=== PATIENT | female | born 1995 | race Caucasian/White ===

== ENCOUNTER 2016-03-21 04:08 | Outpatient (CLI) | payer MEDICAID ==
[2016-03-21 04:33] LABS: APPEARANCE,URINE SLIGHTLY-CLOUDY; BILIRUBIN,URINE NEGATIVE (NEGATIVE); GLUCOSE, URINE NEGATIVE (NEGATIVE); KETONES,URINE NEGATIVE (NEGATIVE); LEUKOCYTE ESTERASE,URINE MODERATE (NEGATIVE); NITRITE,URINE NEGATIVE (NEGATIVE); PROTEIN,URINE 30 mg/dL (NEGATIVE); URINE SPECIFIC GRAVITY 1.023
[2016-03-21 04:47] LABS: URINE BARBITURATES SCREEN NEGATIVE; URINE METHADONE SCREEN NEGATIVE; URINE OPIATES LOW NEGATIVE; URINE PHENCYCLIDINE SCREEN NEGATIVE
[2016-03-21] MEDS ORDERED: FLUCONAZOLE 100 MG TABLET PO ONE (05:13)
[2016-03-21] MEDS ORDERED: FLUCONAZOLE 100 MG TABLET ONE (05:15)
--- NOTE | 2016-03-21 06:21 | Non Stress Test Report ---
Non Stress Test Datetime Report Generated by CPN: 03/21/2016 06:20 DEMOGRAPHIC EGA NST: 36.3 INDICATION Indication for Study: Ordered by Provider Indication for Study (NST) Other: labor check URINE RESULTS Urine Protein, NST: Positive Urine Ketones - NST: Negative Urine Glucose - NST: Negative Urine Blood - NST: Negative MONITORING Monitor Explained: Monitor Explained; Test Explained; Patient Verbalized Understanding Time on Monitor: 03/21/2016 04:19 Time off Monitor: 03/21/2016 06:08 NST Duration: 109 NST INTERVENTIONS NST Interventions: PO Hydration Physician Notified NST: Dr. Neilsen BABY A: [id number] BABY A Movement : Present Contraction Frequency : irregular FHR Baseline : 135 Accelerations : 15X15 Variability : Moderate 6-25bpm NST Review: Meets Criteria for Reactive NST NST Review and Verified By : B. Ring RN NST Results: Reactive NST REPORT Report Trigger: Send Report
[2016-03-21 06:45] LABS: CHLAM PCR NOT DETECTED (NOT DETECT)
== END 2016-03-21 06:14 | disposition home or self-care (01) ==
LOC: LC 04:08
PROVIDERS: ATTEND Specialist
PROC: 4A1HXCZ Monitoring of Products of Conception, Cardiac Rate, External Approach (ICD-10-PCS; principal; 2016-03-21)
DX: O47.03 False labor before 37 completed weeks of gestation, third trimester (principal); Z3A.36 36 weeks gestation of pregnancy
CPT/HCPCS: 59025; 87077; 81001; 87081; 80307; 87491; 87591; J3490

== ENCOUNTER 2016-03-21 08:19 | Inpatient (IN) | payer MEDICAID ==
[2016-03-21] MEDS ORDERED: PENICILLIN G POTASSIUM 5,000,000 UNIT in DEXTROSE 5%-WATER 100 ML IV ONE (08:46)
[2016-03-21] MEDS ORDERED: PENICILLIN G-K 5 MILLION UNIT VIAL ONE (08:52)
[2016-03-21] MEDS ORDERED: MISOPROSTOL 0.2 MG TABLET ONE (08:57)
[2016-03-21] MEDS ORDERED: LIDOCAINE 1% INJ-PF (10 MG/ML) 30 ML SDV ONE (08:57)
[2016-03-21] MEDS ORDERED: OXYTOCIN/NORMAL SALINE 20 UNIT/1,000 ML RTUINJ ONE (08:57)
[2016-03-21] MEDS ORDERED: FENTANYL/BUPIVACAINE/NS/PF 100 ML EPI PRN (09:19)
[2016-03-21] MEDS ORDERED: BUPIVACAINE HCL 0.25 % INJ/PF (2.5 MG/1 ML) 30 ML VIAL INFIL ONE (09:19)
[2016-03-21] MEDS ORDERED: BENZOIN/ALOE VERA/STORAX/TOLU TINCTURE 60 ML TP PRN (09:19)
[2016-03-21] MEDS ORDERED: EPHEDRINE SULFATE INJ 50 MG/1 ML AMPULE IV PRN (09:19)
[2016-03-21 09:23] LABS: ABSOLUTE EOSINOPHILS # (AUTO) 0.1 10^3/uL (0.0-0.6); ABSOLUTE LYMPHOCYTES (AUTO) 2.5 10^3/uL (0.5-4.7); ABSOLUTE MONOCYTES (AUTO) 0.5 10^3/uL (0.1-1.4); ABSOLUTE NEUT (AUTO) 7.2 10^3/uL (1.7-8.2); BASOPHILS % (AUTO) 0.3 % (0-2); EOSINOPHILS % (AUTO) 0.6 % (0-6); HEMATOCRIT 29.9 % (36.0-47.0); HEMOGLOBIN 9.4 g/dL (12.0-15.5); HGB HCT DIFFERENCE -1.7; LYMPHOCYTES % (AUTO) 24.2 % (13-45); MEAN CORPUSCULAR HEMOGLOBIN 23.9 pg (27.0-33.4); MEAN CORPUSCULAR HGB CONC 31.3 g/dL (32.0-36.0); MEAN CORPUSCULAR VOLUME 77 fl (80-97); MONOCYTES % (AUTO) 4.9 % (3-13); RED BLOOD COUNT 3.91 10^6/uL (3.72-5.28); RED CELL DISTRIBUTION WIDTH 16.6 % (11.5-14.0); WHITE BLOOD COUNT 10.3 10^3/uL (4.0-10.5)
[2016-03-21] MEDS ORDERED: EPHEDRINE SULFATE INJ 50 MG/1 ML AMPULE ONE (09:23)
[2016-03-21] MEDS ORDERED: FENTANYL/BUPIVACAINE/NS/PF 200 MCG/100 ML RTUINJ EPI ONE (09:24)
[2016-03-21] MEDS ORDERED: BUPIVACAINE HCL 0.25 % INJ/PF (2.5 MG/1 ML) 30 ML VIAL ONE (09:24)
[2016-03-21 09:32] LABS: AMNISURE (ROM) POSITIVE (NEGATIVE)
[2016-03-21] MEDS: RINGERS SOLUTION,LACTATED 1,000 ML IV PRN ×2 (09:35→09:45)
--- NOTE | 2016-03-21 10:00 | L&D Flow Sheet ---
LD Flowsheet Datetime Report Generated by CPN: 03/21/2016 10:00 Datetime: 03/21/2016 09:59 Vital Signs NBP Sys/Johanna/Mean (mmHg): 122 (QS system process) : 71 (QS system process) : 92 (QS system process) Pulse: 89 (QS system process) LaborFlag: OB Triage (QS system process) Datetime: 03/21/2016 09:58 Vital Signs NBP Sys/Johanna/Mean (mmHg): 131 (QS system process) : 74 (QS system process) : 95 (QS system process) Pulse: 96 (QS system process) Epidural Procedure: Cath Placed; Test Dose (Irasema Marciano, RN) LaborFlag: OB Triage (QS system process) Datetime: 03/21/2016 09:57 Epidural Procedure: Loading Dose (Irasemaalisson Tariq, RN) Datetime: 03/21/2016 09:50 Procedure TIME OUT Procedure Type: Epidural (Irasema Tariq, JUVENCIO) Procedure Verify: Correct Patient Identity; Correct Side and Site are Marked; Accurate Procedure Consent Form; Agreement on Procedure to be Done; Correct Patient Position; Relevant Images and Results are Properly Labeled and Displayed; Addressed Need to Administer Antibiotics or Fluids for Irrigation; Safety Precautions Based on Patient History or Medication Use (Irasema Tariq, JUVENCIO) Anesthesia Anesthesia Plans: Epidural (Irasema Tariq, RN) Epidural Positioning: Sitting (Irasema Tariq, RN) Anesthesia Comments: Dr Kaur at bedside (Irasema Tariq RN) Datetime: 03/21/2016 09:45 Patient Care IV/Blood Work: New IV Bag Hung; IV Bag Number @ 2 (Irasema Marciano, RN) Datetime: 03/21/2016 09:39 Anesthesia Anesthesia Plans: Epidural (Irasemaalisson Tariq, RN) Epidural Positioning: Sitting (Irasema Valenciaie, RN) Datetime: 03/21/2016 09:30 Uterine Activity Monitor Mode: External; Palpation (Irasema Tariq, RN) Frequency (min): 2-3 (Irasema Tariq, RN) Quality: Moderate to Strong (Irasemaalisson Tariq, RN) Duration (sec): 60-80 (Irasema Tariq, RN) Resting Tone (Palpate): Relaxed (Irasema Tariq, RN) Assessment A Monitor Mode: External US (Irasema Marciano, RN) FHR Baseline Rate : 140 (Irasema Marciano, RN) Variability: Moderate 6-25 bpm (Irasema Marciano, RN) Accelerations: 15X15 (Irasema Marciano, RN) Decelerations: None (Irasema Marciano, RN) Procedure TIME OUT Procedure Type: Epidural (Irasema Marciano, RN) Procedure Verify: Correct Patient Identity; Correct Side and Site are Marked; Accurate Procedure Consent Form; Agreement on Procedure to be Done; Relevant Images and Results are Properly Labeled and Displayed; Addressed Need to Administer Antibiotics or Fluids for Irrigation; Safety Precautions Based on Patient History or Medication Use (Irasema Marciano, RN) Anesthesia Anesthesia Plans: Epidural (Irasema Tariq, RN) Epidural Positioning: Sitting (Irasema Tariq, RN) Anesthesia Comments: Dr Chekan notified of epidural request (Irasemaalisson Tariq, RN) Datetime: 03/21/2016 09:28 Vital Signs NBP Sys/Johanna/Mean (mmHg): 131 (QS system process) : 70 (QS system process) : 92 (QS system process) Pulse: 109 (QS system process) Respirations: 18 (Irasemaalisson Tariq, RN) LaborFlag: OB Triage (QS system process) Datetime: 03/21/2016 09:02 Frequency (min): 3-5 (Irasema Tariq RN) Pain Pain Scale: 5 (Irasema Tariq RN) Pain Presence: Intermittent (Irasema Tariq RN) Pain Type: Contraction (Irasema Tariq RN) Pain Location: Abdomen (Irasema Tariq RN) Pain Goal: 2 (Irasema Tariq RN) Pain Relief Measures: Comfort Measures (Irasema Tariq RN) Pain Coping: Breathing Through Contractions; Requesting Pain Medication or Epidural (Irasema Tariq RN) Membrane Status: Ruptured (Irasema Tariq RN) Membranes Ruptured Date/Time: 03/21/2016 07:30 (Irasema Tariq RN) Membranes Rupture Method: Spontaneous (Irasema Tariq RN) Amniotic Fluid Color: Clear (Irasema Tariq RN) Amniotic Fluid Amount: Moderate (Irasema Tariq RN) Amniotic Fluid Odor: Normal (Irasema Tariq RN) Vaginal Bleeding: None (Irasema Tariq RN) Kelly's Score Dilatation (cm): 5 or greater cms (Irasema Tariq RN) Effacement: >80_ effaced (Irasema Tariq RN) Station: plus 1 to 2 (Irasema Tariq RN) Consistency: Soft (Irasema Tariq, RN) Position: Anterior (Irasema Tariq, RN) Total Kelly's Score: 13 (QS system process) : 9-14 = Usually no failure for induction (QS system process) Maternal Assessment Level of Consciousness: Fully Conscious (Irasema Tariq, RN) DTR's/Clonus: DTRs 1+; No Clonus (Irasema Tariq, RN) Headache: Denies (Irasema Tariq, RN) Breath Sounds, Left: Clear and Equal (Irasema Tariq, RN) Breath Sounds, Right: Clear and Equal (Irasema Tariq, RN) Nausea/Vomiting: Denies (Irasema Tariq, RN) RUQ Epigastric Pain: Denies (Irasema Tariq, RN) Teaching Instructional Method: Verbal; Patient Instructed; Family/Support Person Instructed; Verbalized Understanding (Irasema Tariq RN) Plan of Care: Plan of Care Discussed; Vaginal Delivery; Labor (Irasema Tariq RN) Unit Routine: [place] to Room; Call Guerra; Bed; Visiting Policy; Waiting Areas; Infant Security; Phone/Cell Phone Use; Photography; Unit Personnel; Consents Signed; Handwashing; Monitoring; IV Pumps; Safety/Fall Risk Prevention; Bathroom Privileges; Medications (Irasema Tariq RN) Labor/Induction: Labor Stages; Antibiotic Use (Irasema Tariq RN) Pain Management: Epidural; Pain Scale/Goals; Comfort Measures (Irasema Tariq RN) Medications: Antibiotics (Irasema Tariq RN) LaborFlag: OB Triage (QS system process) Datetime: 03/21/2016 09:00 Uterine Activity Monitor Mode: External; Palpation (Irasema Tariq RN) Frequency (min): 2-3 (Irasema Tariq RN) Quality: Moderate to Strong (Irasema Tariq RN) Duration (sec): 60-80 (Irasema Tariq RN) Resting Tone (Palpate): Relaxed (Irasema Tariq RN) Assessment A Monitor Mode: External US (Irasema Tariq, RN) FHR Baseline Rate : 135 (Irasema Valenciaie, RN) Variability: Moderate 6-25 bpm (Irasema Marciano, RN) Accelerations: 15X15 (Irasema Marciano, RN) Decelerations: None (Irasema Valenciaie, RN) Datetime: 03/21/2016 08:57 Medications Antibiotics: Penicillin IV (Units) @ 5million units (Irasema Marciano, RN) Procedure TIME OUT Procedure Type: Epidural (Irasema Marciano, RN) Procedure Verify: Correct Patient Identity; Correct Side and Site are Marked; Accurate Procedure Consent Form; Agreement on Procedure to be Done; Relevant Images and Results are Properly Labeled and Displayed; Addressed Need to Administer Antibiotics or Fluids for Irrigation; Safety Precautions Based on Patient History or Medication Use (Irasema Tariq, RN) Anesthesia Anesthesia Plans: Epidural (Irasema Marciano, RN) Datetime: 03/21/2016 08:54 Patient Care IV/Blood Work: IV Started; IV Bolus Started; IV Bag Number @ 1 (Irasema Tariq RN) Datetime: 03/21/2016 08:53 Vital Signs NBP Sys/Johanna/Mean (mmHg): 119 (QS system process) : 76 (QS system process) : 91 (QS system process) Pulse: 88 (QS system process) Respirations: 18 (Irasema Tariq RN) Temperature (F): 98.2 (Irasema Tariq RN) Temperature (C): 36.8 (QS system process) Temperature Route: Oral (Irasema Tariq RN) LaborFlag: OB Triage (QS system process) Datetime: 03/21/2016 08:41 Vaginal Exam Dilatation (cm): 7.0 (Irasema Tariq RN) Effacement (%): 90 (Irasema Tariq RN) Station: 1 (Irasema Tariq RN) Exam by: Helena Tariq RNC (Irasema Tariq RN) Vaginal Bleeding: None (Irasema Tariq RN) Cervix, Consistency: Soft (Irasema Tariq RN) Cervix, Position: Anterior (Irasema Tariq RN) Datetime: 03/21/2016 06:14 Communication Additional Nursing Comments: pt left ambulatory from unit (Elma Chalman, RN) Datetime: 03/21/2016 06:08 Patient Care Comments: pt states that she is feeling much better and that contractions have gotten better. Pt educated on POC as directed by Dr. Luz. Pt instructed to f/u with doctor as regular scheduled appt. Pt vebalized understanding and agreed to POC (Elma Chalman, RN) Datetime: 03/21/2016 06:04 Vital Signs NBP Sys/Johanna/Mean (mmHg): 129 (QS system process) : 75 (QS system process) : 97 (QS system process) Pulse: 77 (QS system process) LaborFlag: OB Triage (QS system process) Datetime: 03/21/2016 06:00 Uterine Activity Monitor Mode: External; Palpation (Elma Loaiza RN) Frequency (min): irregular (Elma Loaiza RN) Quality: Mild (Elma Loaiza RN) Duration (sec): 60-80 (Emla Chalman, RN) Pattern: Normal: <= 5 Contractions in 10 Minutes (Elma Timaman, RN) Resting Tone (Palpate): Relaxed (Elma Chalman, RN) Contraction Comments: uterine irritability (Elma Chalman, RN) Assessment A Monitor Mode: External US (Elma Chalman, RN) FHR Baseline Rate : 135 (Elma Timaman, RN) Variability: Moderate 6-25 bpm (Elma Timaman, RN) Accelerations: 15X15 (Elma Timaman, RN) Decelerations: None (Elma Timaman, RN) Datetime: 03/21/2016 05:55 Vital Signs NBP Sys/Johanna/Mean (mmHg): 121 (QS system process) : 68 (QS system process) : 88 (QS system process) Pulse: 80 (QS system process) LaborFlag: OB Triage (QS system process) Datetime: 03/21/2016 05:45 Vital Signs NBP Sys/Johanna/Mean (mmHg): 121 (QS system process) : 72 (QS system process) : 91 (QS system process) Pulse: 83 (QS system process) LaborFlag: OB Triage (QS system process) Datetime: 03/21/2016 05:35 Vital Signs NBP Sys/Johanna/Mean (mmHg): 121 (QS system process) : 76 (QS system process) : 92 (QS system process) Pulse: 102 (QS system process) LaborFlag: OB Triage (QS system process) Datetime: 03/21/2016 05:30 Uterine Activity Monitor Mode: External; Palpation (Elma Chalman, RN) Frequency (min): 6-9 (Elma Chalman, RN) Quality: Mild (Elma Chalman, RN) Duration (sec): 40-70 (Elma Chalman, RN) Pattern: Normal: <= 5 Contractions in 10 Minutes (Elma Chalman, RN) Resting Tone (Palpate): Relaxed (Elma Chalman, RN) Assessment A Monitor Mode: External US (Elma Chalman, RN) FHR Baseline Rate : 130 (Elma Chalman, RN) Variability: Moderate 6-25 bpm (Elma Chalman, RN) Accelerations: 15X15 (Elma Chalman, RN) Decelerations: None (Elma Chalman, RN) Datetime: 03/21/2016 05:24 Vital Signs NBP Sys/Johanna/Mean (mmHg): 122 (QS system process) : 65 (QS system process) : 85 (QS system process) Pulse: 81 (QS system process) LaborFlag: OB Triage (QS system process) Datetime: 03/21/2016 05:17 Vital Signs NBP Sys/Johanna/Mean (mmHg): 125 (QS system process) : 60 (QS system process) : 86 (QS system process) Pulse: 96 (QS system process) LaborFlag: OB Triage (QS system process) Datetime: 03/21/2016 05:16 Medication Comments: Diflucan 150 mg po (Elma Chalman, RN) Datetime: 03/21/2016 05:12 Patient Care Comments: Dr. Luz called with pt report of possible yeast infection and d/c noted on exam. Per provider pt to have Diflucan 150mg POx1 dose now (Elma Timaman, RN) Datetime: 03/21/2016 05:08 I/O Interventions: Up to BR (Elma Chalman, RN) Datetime: 03/21/2016 05:06 Patient Care Comments: pt states that she was dx with yeast infection 2 weeks ago but s/sx never improved. (Elma Loaiza RN) Datetime: 03/21/2016 05:04 Vital Signs NBP Sys/Johanna/Mean (mmHg): 123 (QS system process) : 63 (QS system process) : 86 (QS system process) Pulse: 91 (QS system process) Vaginal Exam Comments: closed/thick/-1 (Elma Loaiza RN) LaborFlag: OB Triage (QS system process) Datetime: 03/21/2016 05:01 Patient Care Comments: white curdy d/c noted on SSE (Elma Loaiza RN) Patient Care Comments: GBS cx and gc/chalm via SSE done (Elma Loaiza RN) Datetime: 03/21/2016 05:00 Uterine Activity Monitor Mode: External; Palpation (Elma Loaiza RN) Frequency (min): 6-9 (Elma Loaiza RN) Quality: Mild (Elma Chalman, RN) Duration (sec): 60-90 (Elma Chalman, RN) Pattern: Normal: <= 5 Contractions in 10 Minutes (Elma Chalman, RN) Resting Tone (Palpate): Relaxed (Elma Chalman, RN) Assessment A Monitor Mode: External US (Elma Chalman, RN) FHR Baseline Rate : 140 (Elma Chalman, RN) FHR Baseline Changes: No Baseline Change (Elma Chalman, RN) Variability: Moderate 6-25 bpm (Elma Chalman, RN) Accelerations: 10X10 (Elma Chalman, RN) Decelerations: None (Elma Chalman, RN) Datetime: 03/21/2016 04:54 Vital Signs NBP Sys/Johanna/Mean (mmHg): 124 (QS system process) : 71 (QS system process) : 91 (QS system process) Pulse: 80 (QS system process) LaborFlag: OB Triage (QS system process) Datetime: 03/21/2016 04:51 Communication Additional Nursing Comments: Report called to Dr. Luz. provider aware that pt is not our pt presenting for contractions. Provider given u/a, toco and FHR tracing along with pt complaint and history. Per provider pt to have GBS cx, GC/Chlam swab and SVE. Pt to be monitored x1 hour while PO hydrating to see if contractions improve. (Elma Loaiza RN) Datetime: 03/21/2016 04:45 Uterine Activity Monitor Mode: External; Palpation (Elma Chalman, RN) Frequency (min): 7-8 (Elma Chalman, RN) Quality: Mild (Elma Chalman, RN) Duration (sec): 40-60 (Elma Chalman, RN) Pattern: Normal: <= 5 Contractions in 10 Minutes (Elma Chalman, RN) Resting Tone (Palpate): Relaxed (Elma Chalman, RN) Assessment A Monitor Mode: External US (Elma Chalman, RN) FHR Baseline Rate : 145 (Elma Chalman, RN) FHR Baseline Changes: No Baseline Change (Elma Chalman, RN) Variability: Moderate 6-25 bpm (Elma Chalman, RN) Accelerations: 10X10 (Elma Chalman, RN) Decelerations: None (Elma Chalman, RN) Datetime: 03/21/2016 04:44 Vital Signs NBP Sys/Johanna/Mean (mmHg): 123 (QS system process) : 71 (QS system process) : 90 (QS system process) Pulse: 82 (QS system process) LaborFlag: OB Triage (QS system process) Datetime: 03/21/2016 04:27 Vital Signs NBP Sys/Johanna/Mean (mmHg): 132 (QS system process) : 78 (QS system process) : 98 (QS system process) Pulse: 87 (QS system process) Frequency (min): 7-8 (Elma Loaiza RN) Pain Pain Scale: 3 (Elma Loaiza RN) Pain Presence: Intermittent (Elma Loaiza RN) Pain Type: Contraction (Elma Loaiza RN) Pain Location: Abdomen; Back (Elma Loaiza RN) Pain Relief Measures: Comfort Measures (Elma Loaiza RN) Pain Coping: Talking Through Contractions (Elma Loaiza RN) Membrane Status: Intact (Elma Loaiza RN) Vaginal Bleeding: None (Elma Loaiza RN) Maternal Assessment Level of Consciousness: Fully Conscious (Elma Loaiza RN) DTR's/Clonus: DTRs 1+ (Elma Loaiza RN) Headache: Denies (Elma Loaiza RN) Breath Sounds, Left: Clear and Equal (Elma Loaiza RN) Breath Sounds, Right: Clear and Equal (Elma Loaiza RN) Nausea/Vomiting: Denies (Elma Loaiza RN) RUQ Epigastric Pain: Denies (Elma Loaiza RN) LaborFlag: OB Triage (QS system process)
[2016-03-21] MEDS ORDERED: MISOPROSTOL 0.2 MG TABLET PR PRN (10:36)
[2016-03-21] MEDS ORDERED: OXYTOCIN/NORMAL SALINE 1,000 ML IV PRN (10:36)
[2016-03-21] MEDS ORDERED: LIDOCAINE 1% INJ-PF (10 MG/ML) 30 ML SDV INJ PRN (10:38)
--- NOTE | 2016-03-21 12:00 | L&D Flow Sheet ---
LD Flowsheet Datetime Report Generated by CPN: 03/21/2016 12:00 Datetime: 03/21/2016 11:47 Communication Comments: Dr Varner notified of SVE (Irasema Tariq, RN) Datetime: 03/21/2016 11:45 Monitor Mode: External; Palpation (Irasema Tariq RN) Frequency (min): 2-3 (Irasema Tariq RN) Quality: Moderate (Irasema Tariq RN) Duration (sec): 50-70 (Irasema Tariq RN) Resting Tone (Palpate): Relaxed (Irasema Tariq RN) Monitor Mode: External US (Irasema Tariq RN) FHR Baseline Rate : 145 (Irasema Tariq RN) Variability: Moderate 6-25 bpm (Irasema Tariq RN) Decelerations: None (Irasema Tariq RN) Datetime: 03/21/2016 11:44 Patient Position/Activity: Left Lateral; Peanut Ball (Irasema Tariq RN) Datetime: 03/21/2016 11:41 Dilatation (cm): 9.0 (Irasema Tariq RN) Effacement (%): 90 (Irasema Tariq RN) Station: 1 (Irasema Tariq RN) Exam by: Helena Tariq RNC (Irasema Tariq RN) Vaginal Bleeding: Normal Show (Irasema Tariq RN) Cervix, Consistency: Soft (Irasema Tariq RN) Cervix, Position: Anterior (Irasema Tariq RN) Pushing: Urge to Push (Irasema Tariq RN) Stage 2 Comments: Patient reports pressure (Irasema Marciano, RN) Datetime: 03/21/2016 11:30 Monitor Mode: External; Palpation (Irasema Marciano, RN) Frequency (min): 2-3 (Irasema Marciano, RN) Quality: Moderate (Irasema Marciano, RN) Duration (sec): 50-70 (Irasema Marciano, RN) Resting Tone (Palpate): Relaxed (Irasema Marciano, RN) Monitor Mode: External US (Irasema Marciano, RN) FHR Baseline Rate : 145 (Irasema Marciano, RN) Variability: Moderate 6-25 bpm (Irasema Marciano, RN) Decelerations: None (Irasema Marciano, RN) Datetime: 03/21/2016 11:15 Monitor Mode: External; Palpation (Irasema Marciano, RN) Frequency (min): 2 (Irasema Marciano, RN) Quality: Moderate (Irasema Marciano, RN) Duration (sec): 50-70 (Irasema Marciano, RN) Resting Tone (Palpate): Relaxed (Irasema Marciano, RN) Monitor Mode: External US (Irasema Marciano, RN) FHR Baseline Rate : 135 (Irasema Marciano, RN) Variability: Moderate 6-25 bpm (Irasema Marciano, RN) Accelerations: 15X15 (Irasema Marciano, RN) Decelerations: None (Irasema Marciano, RN) Datetime: 03/21/2016 11:11 Patient Position/Activity: Right Lateral (Irasema Marciano, RN) Datetime: 03/21/2016 11:03 Patient Position/Activity: Right Tilt (Irasema Marciano, RN) Datetime: 03/21/2016 11:00 NBP Sys/Johanna/Mean (mmHg): 125 (QS system process) : 63 (QS system process) : 88 (QS system process) Pulse: 84 (QS system process) Respirations: 16 (Irasema Tariq RN) Temperature (F): 98.2 (Irasema Tariq RN) Temperature (C): 36.8 (QS system process) Temperature Route: Oral (Irasema Tariq RN) Monitor Mode: External; Palpation (Irasema Tariq RN) Frequency (min): 2-3 (Irasema Tariq RN) Quality: Moderate (Irasema Tariq RN) Duration (sec): 50-70 (Irasema Tariq RN) Resting Tone (Palpate): Relaxed (Irasema Tariq RN) Monitor Mode: External US (Irasema Tariq RN) FHR Baseline Rate : 130 (Irasema Tariq RN) Variability: Minimal - Undetectable to <=5 bpm (Irasema Tariq RN) Decelerations: Variable (Irasema Tariq RN) LaborFlag: OB Triage (QS system process) Datetime: 03/21/2016 10:57 NBP Sys/Johanna/Mean (mmHg): 126 (QS system process) : 76 (QS system process) : 95 (QS system process) Pulse: 86 (QS system process) LaborFlag: OB Triage (QS system process) Datetime: 03/21/2016 10:54 NBP Sys/Johanna/Mean (mmHg): 131 (QS system process) : 66 (QS system process) : 91 (QS system process) Pulse: 88 (QS system process) LaborFlag: OB Triage (QS system process) Datetime: 03/21/2016 10:48 NBP Sys/Johanna/Mean (mmHg): 126 (QS system process) : 59 (QS system process) : 85 (QS system process) Pulse: 92 (QS system process) LaborFlag: OB Triage (QS system process) Datetime: 03/21/2016 10:45 NBP Sys/Johanna/Mean (mmHg): 134 (QS system process) : 72 (QS system process) : 92 (QS system process) Pulse: 90 (QS system process) Respirations: 18 (Irasema Marciano, RN) Monitor Mode: External; Palpation (Irasema Tariq, RN) Frequency (min): 2-3 (Irasema Tariq, RN) Quality: Moderate (Irasema Tariq, RN) Duration (sec): 60-80 (Irasema Tariq RN) Resting Tone (Palpate): Relaxed (Irasema Tariq, RN) Monitor Mode: External US (Irasema Tariq RN) FHR Baseline Rate : 135 (Irasema Tariq, RN) Variability: Moderate 6-25 bpm (Irasemaalisson Tariq, RN) Accelerations: 10X10 (Irasemaalisson Tariq, RN) Decelerations: Early; Variable (Irasema Tariq, RN) LaborFlag: OB Triage (QS system process) Datetime: 03/21/2016 10:38 NBP Sys/Johanna/Mean (mmHg): 138 (QS system process) : 66 (QS system process) : 92 (QS system process) Pulse: 86 (QS system process) Respirations: 16 (Irasema Tariq RN) LaborFlag: OB Triage (QS system process) Datetime: 03/21/2016 10:34 NBP Sys/Johanna/Mean (mmHg): 129 (QS system process) : 65 (QS system process) : 91 (QS system process) Pulse: 96 (QS system process) Respirations: 16 (Irasema Tariq RN) LaborFlag: OB Triage (QS system process) Datetime: 03/21/2016 10:30 Monitor Mode: External; Palpation (Irasema Tariq RN) Frequency (min): 2-3 (Irasema Tariq RN) Quality: Moderate (Irasema Tariq RN) Duration (sec): 50-80 (Irasema Tariq RN) Resting Tone (Palpate): Relaxed (Irasema Tariq RN) Monitor Mode: External US (Irasema Tariq RN) FHR Baseline Rate : 135 (Irasema Tariq RN) Variability: Moderate 6-25 bpm (Irasemaalisson Tariq, RN) Accelerations: 15X15 (Irasemaalisson Tariq, RN) Decelerations: Variable (Irasema Tariq RN) Datetime: 03/21/2016 10:28 NBP Sys/Johanna/Mean (mmHg): 125 (QS system process) : 74 (QS system process) : 95 (QS system process) Pulse: 94 (QS system process) LaborFlag: OB Triage (QS system process) Datetime: 03/21/2016 10:23 NBP Sys/Johanna/Mean (mmHg): 127 (QS system process) : 61 (QS system process) : 88 (QS system process) Pulse: 91 (QS system process) Respirations: 16 (Irasema Tariq RN) LaborFlag: OB Triage (QS system process) Datetime: 03/21/2016 10:18 Pain Scale: 0 (Irasema Tariq RN) Pain Presence: None/Denies (Irasema Tariq RN) Pain Type: N/A (Irasema Tariq RN) Pain Goal: 2 (Irasema Tariq RN) I/O Interventions: Paulson Cath Inserted (Irasema Tariq RN) LaborFlag: OB Triage (QS system process) Datetime: 03/21/2016 10:15 Monitor Mode: External; Palpation (Irasema Marciano, RN) Frequency (min): 2-3 (Irasema Marciano, RN) Quality: Moderate (Irasema Marciano, RN) Duration (sec): 60-80 (Irasema Marciano, RN) Resting Tone (Palpate): Relaxed (Irasema Marciano, RN) Monitor Mode: External US (Irasema Marciano, RN) FHR Baseline Rate : 130 (Irasema Marciano, RN) Variability: Moderate 6-25 bpm (Irasema Marciano, RN) Accelerations: 10X10 (Irasema Marciano, RN) Decelerations: Early (Irasema Marciano, RN) Datetime: 03/21/2016 10:12 NBP Sys/Johanna/Mean (mmHg): 115 (QS system process) : 65 (QS system process) : 83 (QS system process) Pulse: 107 (QS system process) Respirations: 18 (Irasema Marciano, RN) LaborFlag: OB Triage (QS system process) Datetime: 03/21/2016 10:11 Dilatation (cm): 8.0 (Irasema Tariq RN) Effacement (%): 90 (Irasema Tariq RN) Station: 1 (Irasema Tariq RN) Exam by: Helena Tariq RNC (Irasema Tariq RN) Vaginal Bleeding: None (Irasema Tariq RN) Cervix, Consistency: Soft (Irasema Tariq RN) Cervix, Position: Anterior (Irasema Tariq RN) Datetime: 03/21/2016 10:09 NBP Sys/Johanna/Mean (mmHg): 129 (QS system process) : 68 (QS system process) : 86 (QS system process) Pulse: 90 (QS system process) Respirations: 18 (Irasema Tariq RN) LaborFlag: OB Triage (QS system process) Datetime: 03/21/2016 10:08 NBP Sys/Johanna/Mean (mmHg): 118 (QS system process) : 59 (QS system process) : 84 (QS system process) Pulse: 92 (QS system process) LaborFlag: OB Triage (QS system process) Datetime: 03/21/2016 10:07 NBP Sys/Johanna/Mean (mmHg): 152 (QS system process) : 58 (QS system process) : 83 (QS system process) Pulse: 96 (QS system process) Respirations: 16 (Irasema Tariq RN) LaborFlag: OB Triage (QS system process) Datetime: 03/21/2016 10:04 NBP Sys/Johanna/Mean (mmHg): 116 (QS system process) : 62 (QS system process) : 82 (QS system process) Pulse: 86 (QS system process) Respirations: 18 (Irasema Tariq RN) LaborFlag: OB Triage (QS system process) Datetime: 03/21/2016 10:03 NBP Sys/Johanna/Mean (mmHg): 115 (QS system process) : 57 (QS system process) : 81 (QS system process) Pulse: 94 (QS system process) Respirations: 18 (Irasema Tariq RN) LaborFlag: OB Triage (QS system process) Datetime: 03/21/2016 10:02 NBP Sys/Johanna/Mean (mmHg): 118 (QS system process) : 60 (QS system process) : 82 (QS system process) Pulse: 90 (QS system process) Respirations: 20 (Irasema Tariq RN) Patient Position/Activity: Left Tilt; Supine (Irasema Tariq RN) LaborFlag: OB Triage (QS system process) Datetime: 03/21/2016 10:00 Monitor Mode: External; Palpation (Irasema Tariq RN) Frequency (min): 2-3 (Irasema Tariq RN) Quality: Moderate to Strong (Irasema Tariq RN) Duration (sec): 50-80 (Irasema Tariq RN) Resting Tone (Palpate): Relaxed (Irasema Tariq RN) Monitor Mode: External US (Irasema Tariq RN) FHR Baseline Rate : 135 (Irasema Tariq RN) Variability: Moderate 6-25 bpm (Irasema Tariq RN) Accelerations: 15X15 (Irasema Tariq RN) Decelerations: None (Irasema Tariq RN)
[2016-03-21] MEDS ORDERED: PENICILLIN G POTASSIUM 2,500,000 UNIT in DEXTROSE 5%-WATER 50 ML IV SCH (12:49)
[2016-03-21] MEDS ORDERED: DIBUCAINE 1% OINTMENT 28 GM TP PRN (13:02)
[2016-03-21] MEDS ORDERED: ACETAMINOPHEN WITH CODEINE #3 TABLET PO PRN ×2 (13:02)
[2016-03-21] MEDS ORDERED: DIPH/PERTUSS(ACELL)/TETANUS VAC/PF 0.5 ML SYR (>=10YO) IM PRN (13:02)
[2016-03-21] MEDS ORDERED: BENZOCAINE/MENTHOL AEROSOL SPRAY 56 ML TOP PRN (13:02)
[2016-03-21] MEDS ORDERED: ZOLPIDEM TARTRATE 5 MG TABLET PO PRN (13:02)
[2016-03-21] MEDS ORDERED: MEASLES,MUMPS&RUBELLA VACC/PF 0.5 ML VIAL SUBCUT PRN (13:02)
[2016-03-21] MEDS ORDERED: IBUPROFEN 800 MG TABLET ONE (13:44)
[2016-03-21] MEDS: IBUPROFEN 800 MG TABLET PO SCH ×2 (13:46→21:33)
--- NOTE | 2016-03-21 14:01 | L&D Flow Sheet ---
LD Flowsheet Datetime Report Generated by CPN: 03/21/2016 14:00 Datetime: 03/21/2016 13:30 NBP Sys/Johanna/Mean (mmHg): 108 (QS system process) : 56 (QS system process) : 76 (QS system process) Pulse: 77 (QS system process) Datetime: 03/21/2016 13:15 NBP Sys/Johanna/Mean (mmHg): 109 (QS system process) : 60 (QS system process) : 78 (QS system process) Pulse: 89 (QS system process) Datetime: 03/21/2016 13:00 NBP Sys/Johanna/Mean (mmHg): 102 (QS system process) : 69 (QS system process) : 82 (QS system process) Pulse: 90 (QS system process) Respirations: 14 (Irasema Marciano, RN) Datetime: 03/21/2016 12:45 NBP Sys/Johanna/Mean (mmHg): 90 (QS system process) : 59 (QS system process) : 67 (QS system process) Pulse: 109 (QS system process) Respirations: 14 (Irasema Marciano, RN) Datetime: 03/21/2016 12:30 NBP Sys/Johanna/Mean (mmHg): 113 (QS system process) : 60 (QS system process) : 79 (QS system process) Pulse: 103 (QS system process) Respirations: 16 (Irasema Tariq RN) Datetime: 03/21/2016 12:15 NBP Sys/Johanna/Mean (mmHg): 120 (QS system process) : 66 (QS system process) : 84 (QS system process) Pulse: 108 (QS system process) Respirations: 16 (Irasema Tariq RN) Pain Scale: 3 (Irasema Tariq RN) Pain Presence: Constant (Irasema Tariq RN) Pain Type: Burning; Cramping (Irasema Tariq RN) Pain Location: Abdomen; Perineum (Irasema Tariq RN) Pain Goal: 2 (Irasema Tariq RN) Pain Relief Measures: Comfort Measures (Irasema Tariq RN) Medication Comments: NS w/ 20units pitocin IVF (Irasema Tariq RN) Stage 2 Comments: Intact placenta, to pathology per Dr Varner (Irasema Tariq RN) Datetime: 03/21/2016 12:14 Stage of : Recovery (Irasema Marciano, RN) Datetime: 03/21/2016 12:13 Monitor Mode: External; Palpation (Irasema Marciano, RN) Frequency (min): 2-3 (Irasema Marciano, RN) Quality: Moderate to Strong (Irasema Marciano, RN) Duration (sec): 50-70 (Irasema Marciano, RN) Resting Tone (Palpate): Relaxed (Irasema Marciano, RN) Monitor Mode: External US (Irasema Marciano, RN) FHR Baseline Rate : 145 (Irasema Marciano, RN) Variability: Moderate 6-25 bpm (Irasema Marciano, RN) Decelerations: Late; Prolonged (Irasema Marciano, RN) Stage 2 Comments: Viable baby girl, see delivery summary (Irasema Marciano, RN) Datetime: 03/21/2016 12:09 Patient Position/Activity: Left Tilt (Irasema Marciano, RN) Datetime: 03/21/2016 12:00 NBP Sys/Johanna/Mean (mmHg): 126 (QS system process) : 59 (QS system process) : 85 (QS system process) Pulse: 98 (QS system process) Monitor Mode: External; Palpation (Irasema Tariq RN) Frequency (min): 2-4 (Irasema Tariq RN) Quality: Moderate to Strong (Irasema Tariq RN) Duration (sec): 50-70 (Irasema Tariq, RN) Resting Tone (Palpate): Relaxed (Irasema Tariq, RN) Monitor Mode: External US (Irasema Tariq, RN) FHR Baseline Rate : 145 (Irasema Tariq, RN) Variability: Minimal - Undetectable to <=5 bpm (Irasema Tariq, RN) Decelerations: Late (Irasema Tariq, RN) Comments: RN and provider remain at bedside continuously assessing FHR while patient pushing (Irasema Tariq, RN) Anesthesia Level Check: T11 (Irasema Tariq, RN) Communication Comments: Dr Varner at bedside for delivery (Irasema Tariq, RN) LaborFlag: OB Triage (QS system process)
--- NOTE | 2016-03-21 15:02 | Admission Physical ---
Datetime Report Generated by CPN: 03/21/2016 15:02 CURRENT ADMISSION Chief Complaint: Uterine Contractions Indication for Induction: Not Applicable Admit Plan: Admit to Unit; Initiate Labor Protocol ALLERGIES Medication Allergies: No Medication Allergies: No Known Allergies (03/21/2016) Latex: No Latex Allergies Food Allergies: NA Environmental Allergies: NA OBSTETRICAL HISTORY EDC: 04/15/2016 00:00 : 2 Para: 1 Term: 1 : 0 SAB: 0 IAB: 0 Ectopic: 0 Livin Cesareans: 0 VBACs: 0 Multiple Births: 0 Gestational Diabetes: No Rh Sensitization: No Incompetent Cervix: No SOLOMON: No Infertility: No ART Treatment: No Uterine Anomaly: No IUGR: No Hx Previous C/S: No Macrosomia: No Hx Loss/Stillborn: No PIH: No Hx : No Placenta Previa/Abruption: No Depression/PP Depression: No PTL/PROM: No Post Hemorrhage: No Current Procedures: Ultrasound Obstetrical History Comments: G1 - 01/2015 - at 41wks, 6lbs 8oz G2 - current - late entry to care, anemia SEE RECORDS Alcohol: No Marijuana : No Cocaine: No Other Illicit Drugs: No Cigarettes: Former Smoker. 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 Surgery: No Heart Disease: No Hosp/Surgery: No Autoimmune Disorder: No Anesthetic Complications: No Kidney Disease: No Abnormal Pap Smear: No Neuro/Epilepsy: No Psychiatric Disorders: No Other Medical Diseases: No Hepatitis/Liver Disease: No Significant Family History: No Varicosities/Phlebitis: No Trauma/Violence : No Thyroid Dysfunction: No INFECTIOUS HISTORY Gonorrhea: No Genital Herpes: No Chlamydia: Yes Tuberculosis: No Syphilis: No Hepatitis: No HIV/AIDS Exposure: No Rash or Viral Illness: No HPV: No Infectious History Comments: 2015 PHYSICAL EXAM General: Normal HEENT: Normal Neurologic: Normal Thyroid: Deferred Heart: Normal Lungs: Normal Breast: Deferred Back: Normal Abdomen: Normal Genitourinary Exam: Normal Extremities: Normal DTRs: Normal Pelvic Type: Adequate Vital Signs: Reviewed; Within Normal Limits VAGINAL EXAM Dilatation: 7 Effacement: 90 Station: 1 MEMBRANES Membranes: Ruptured Amniotic Fluid Color: Clear FETUS A EGA: 36.3 Monitoring: External US FHR- Baseline: 140 Variability: Moderate 6-25bpm Accelerations: 15X15 Decelerations: None FHR Category: Category I Presentation: Vertex Admit Comment: PCN for status PLANS FOR LABOR AND DELIVERY Labor and Delivery: None Pain Management: Epidural Feeding Preference: Formula Benefit of Breast Feed Discussed: Yes Circumcision: N/A INFORMED CONSENT Signature: with User ID: [email or web address]
[2016-03-21] MEDS: DOCUSATE SODIUM 100 MG CAPSULE PO SCH (17:31)
[2016-03-21] MEDS: FERROUS SULFATE 325 MG TABLET PO SCH (17:32)
--- NOTE | 2016-03-21 19:01 | L&D Flow Sheet ---
LD Flowsheet Datetime Report Generated by CPN: 03/21/2016 19:00 Datetime: 03/21/2016 13:45 Pain Scale: 0 (Irasema Marciano, RN) Pain Presence: None/Denies (Irasema Marciano, RN) Pain Type: N/A (Irasema Marciano, RN) Datetime: 03/21/2016 13:30 NBP Sys/Johanna/Mean (mmHg): 108 (QS system process) : 56 (QS system process) : 76 (QS system process) Pulse: 77 (QS system process) Respirations: 18 (Irasema Marciano, RN) Datetime: 03/21/2016 13:15 NBP Sys/Johanna/Mean (mmHg): 109 (QS system process) : 60 (QS system process) : 78 (QS system process) Pulse: 89 (QS system process) Datetime: 03/21/2016 13:00 NBP Sys/Johanna/Mean (mmHg): 102 (QS system process) : 69 (QS system process) : 82 (QS system process) Pulse: 90 (QS system process) Respirations: 14 (Irasema Marciano, RN) Datetime: 03/21/2016 12:45 NBP Sys/Johanna/Mean (mmHg): 90 (QS system process) : 59 (QS system process) : 67 (QS system process) Pulse: 109 (QS system process) Respirations: 14 (Irasema Tariq, RN) Datetime: 03/21/2016 12:30 NBP Sys/Johanna/Mean (mmHg): 113 (QS system process) : 60 (QS system process) : 79 (QS system process) Pulse: 103 (QS system process) Respirations: 16 (Irasema Tariq, JUVENCIO) Datetime: 03/21/2016 12:15 NBP Sys/Johanna/Mean (mmHg): 120 (QS system process) : 66 (QS system process) : 84 (QS system process) Pulse: 108 (QS system process) Respirations: 16 (Irasema Tariq RN) Pain Scale: 3 (Irasema Tariq RN) Pain Presence: Constant (Irasema Tariq RN) Pain Type: Burning; Cramping (Irasema Tariq RN) Pain Location: Abdomen; Perineum (Irasema Tariq RN) Pain Goal: 2 (Irasema Tariq RN) Pain Relief Measures: Comfort Measures (Irasema Tariq RN) Medication Comments: NS w/ 20units pitocin IVF (Irasema Tariq RN) Stage 2 Comments: Intact placenta, to pathology per Dr Varner (Irasema Tariq RN) Datetime: 03/21/2016 12:14 Stage of : Recovery (Irasema Tariq RN) Datetime: 03/21/2016 12:13 Monitor Mode: External; Palpation (Irasema Tariq RN) Frequency (min): 2-3 (Irasema Tariq RN) Quality: Moderate to Strong (Irasema Tariq RN) Duration (sec): 50-70 (Irasema Tariq RN) Resting Tone (Palpate): Relaxed (Irasema Tariq RN) Monitor Mode: External US (Irasema Tariq RN) FHR Baseline Rate : 145 (Irasema Tariq RN) Variability: Moderate 6-25 bpm (Irasema Tariq RN) Decelerations: Late; Prolonged (Irasema Tariq RN) Stage 2 Comments: Viable baby girl, see delivery summary (Irasema Tariq RN) Datetime: 03/21/2016 12:09 Patient Position/Activity: Left Tilt (Irasema Tariq RN) Datetime: 03/21/2016 12:00 NBP Sys/Johanna/Mean (mmHg): 126 (QS system process) : 59 (QS system process) : 85 (QS system process) Pulse: 98 (QS system process) Monitor Mode: External; Palpation (Irasema Tariq RN) Frequency (min): 2-4 (Irasema Tariq RN) Quality: Moderate to Strong (Irasema Tariq RN) Duration (sec): 50-70 (Irasema Tariq RN) Resting Tone (Palpate): Relaxed (Irasema Tariq RN) Monitor Mode: External US (Irasema Tariq RN) FHR Baseline Rate : 145 (Irasema Tariq RN) Variability: Minimal - Undetectable to <=5 bpm (Irasema Tariq RN) Decelerations: Late (Irasema Tariq RN) Comments: RN and provider remain at bedside continuously assessing FHR while patient pushing (Irasema Tariq RN) Anesthesia Level Check: T11 (Irasema Tariq RN) Communication Comments: Dr Varner at bedside for delivery (Irasema Tariq RN) LaborFlag: OB Triage (QS system process) Datetime: 03/21/2016 11:58 I/O Interventions: Paulson Discontinued (Irasema Tariq RN) Datetime: 03/21/2016 11:55 Dilatation (cm): 10.0 (Irasema Tariq RN) Effacement (%): 100 (Irasema Tariq RN) Station: 2 (Irasema Tariq RN) Exam by: Helena Tariq RNC (Irasema Tariq RN) Datetime: 03/21/2016 11:47 Communication Comments: Dr Varner notified of SVE (Irasema Marciano, RN) Datetime: 03/21/2016 11:45 Monitor Mode: External; Palpation (Irasema Marciano, RN) Frequency (min): 2-3 (Irsaema Marciano, RN) Quality: Moderate (Irasema Marciano, RN) Duration (sec): 50-70 (Irasema Marciano, RN) Resting Tone (Palpate): Relaxed (Irasema Marciano, RN) Monitor Mode: External US (Irasema Marciano, RN) FHR Baseline Rate : 145 (Irasema Marciano, RN) Variability: Moderate 6-25 bpm (Irasema Marciano, RN) Decelerations: None (Irasema Marciano, RN) Datetime: 03/21/2016 11:44 Patient Position/Activity: Left Lateral; Peanut Ball (Irasema Tariq RN) Datetime: 03/21/2016 11:41 Dilatation (cm): 9.0 (Irasema Tariq RN) Effacement (%): 90 (Irasema Tariq RN) Station: 1 (Irasema Tariq RN) Exam by: Helena Tariq RNC (Irasema Tariq RN) Vaginal Bleeding: Normal Show (Irasema Tariq RN) Cervix, Consistency: Soft (Irasema Tariq RN) Cervix, Position: Anterior (Irasema Tariq RN) Pushing: Urge to Push (Irasema Tariq RN) Stage 2 Comments: Patient reports pressure (Irasema Tariq RN) Datetime: 03/21/2016 11:30 Monitor Mode: External; Palpation (Irasema Tariq RN) Frequency (min): 2-3 (Irasema Tariq RN) Quality: Moderate (Irasema Tariq RN) Duration (sec): 50-70 (Irasema Tariq RN) Resting Tone (Palpate): Relaxed (Irasema Marciano, RN) Monitor Mode: External US (Irasema Marciano, RN) FHR Baseline Rate : 145 (Irasema Marciano, RN) Variability: Moderate 6-25 bpm (Irasema Marciano, RN) Decelerations: None (Irasema Marciano, RN) Datetime: 03/21/2016 11:15 Monitor Mode: External; Palpation (Irasema Marciano, RN) Frequency (min): 2 (Irasema Marciano, RN) Quality: Moderate (Irasema Marciano, RN) Duration (sec): 50-70 (Irasema Marciano, RN) Resting Tone (Palpate): Relaxed (Irasema Marciano, RN) Monitor Mode: External US (Irasema Marciano, RN) FHR Baseline Rate : 135 (Irasema Marciano, RN) Variability: Moderate 6-25 bpm (Irasema Marciano, RN) Accelerations: 15X15 (Irasema Marciano, RN) Decelerations: None (Irasema Marciano, RN) Datetime: 03/21/2016 11:11 Patient Position/Activity: Right Lateral (Irasema Marciano, RN) Datetime: 03/21/2016 11:03 Patient Position/Activity: Right Tilt (Irasema Tariq RN) Datetime: 03/21/2016 11:00 NBP Sys/Johanna/Mean (mmHg): 125 (QS system process) : 63 (QS system process) : 88 (QS system process) Pulse: 84 (QS system process) Respirations: 16 (Irasema Tariq RN) Temperature (F): 98.2 (Irasema Tariq RN) Temperature (C): 36.8 (QS system process) Temperature Route: Oral (Irasema Tariq RN) Monitor Mode: External; Palpation (Irasema Tariq RN) Frequency (min): 2-3 (Irasema Tariq RN) Quality: Moderate (Irasema Tariq RN) Duration (sec): 50-70 (Irasema Tariq RN) Resting Tone (Palpate): Relaxed (Irasema Tariq RN) Monitor Mode: External US (Irasema Tariq RN) FHR Baseline Rate : 130 (Irasema Tariq RN) Variability: Minimal - Undetectable to <=5 bpm (Irasema Marciano, RN) Decelerations: Variable (Irasema Marciano, RN) Anesthesia Level Check: T11 (Irasema Marciano, RN) LaborFlag: OB Triage (QS system process) Datetime: 03/21/2016 10:57 NBP Sys/Johanna/Mean (mmHg): 126 (QS system process) : 76 (QS system process) : 95 (QS system process) Pulse: 86 (QS system process) LaborFlag: OB Triage (QS system process) Datetime: 03/21/2016 10:54 NBP Sys/Johanna/Mean (mmHg): 131 (QS system process) : 66 (QS system process) : 91 (QS system process) Pulse: 88 (QS system process) LaborFlag: OB Triage (QS system process) Datetime: 03/21/2016 10:48 NBP Sys/Johanna/Mean (mmHg): 126 (QS system process) : 59 (QS system process) : 85 (QS system process) Pulse: 92 (QS system process) LaborFlag: OB Triage (QS system process) Datetime: 03/21/2016 10:45 NBP Sys/Johanna/Mean (mmHg): 134 (QS system process) : 72 (QS system process) : 92 (QS system process) Pulse: 90 (QS system process) Respirations: 18 (Irasmea Tariq RN) Monitor Mode: External; Palpation (Irasema Tariq RN) Frequency (min): 2-3 (Irasema Tariq RN) Quality: Moderate (Irasema Tariq RN) Duration (sec): 60-80 (Irasema Tariq RN) Resting Tone (Palpate): Relaxed (Irasema Tariq RN) Monitor Mode: External US (Irasema Tariq RN) FHR Baseline Rate : 135 (Irasema Tariq RN) Variability: Moderate 6-25 bpm (Irasema Tariq RN) Accelerations: 10X10 (Irasema Tariq RN) Decelerations: Early; Variable (Irasema Tariq RN) LaborFlag: OB Triage (QS system process) Datetime: 03/21/2016 10:38 NBP Sys/Johanna/Mean (mmHg): 138 (QS system process) : 66 (QS system process) : 92 (QS system process) Pulse: 86 (QS system process) Respirations: 16 (Irasema Tariq, JUVENCIO) LaborFlag: OB Triage (QS system process) Datetime: 03/21/2016 10:34 NBP Sys/Johanna/Mean (mmHg): 129 (QS system process) : 65 (QS system process) : 91 (QS system process) Pulse: 96 (QS system process) Respirations: 16 (Irasema Tariq, RN) LaborFlag: OB Triage (QS system process) Datetime: 03/21/2016 10:30 Monitor Mode: External; Palpation (Irasema Marciano, RN) Frequency (min): 2-3 (Irasema Marciano, RN) Quality: Moderate (Irasema Marciano, RN) Duration (sec): 50-80 (Irasema Marciano, RN) Resting Tone (Palpate): Relaxed (Irasema Marciano, RN) Monitor Mode: External US (Irasema Marciano, RN) FHR Baseline Rate : 135 (Irasema Marciano, RN) Variability: Moderate 6-25 bpm (Irasema Marciano, RN) Accelerations: 15X15 (Irasema Marciano, RN) Decelerations: Variable (Irasema Marciano, RN) Datetime: 03/21/2016 10:28 NBP Sys/Johanna/Mean (mmHg): 125 (QS system process) : 74 (QS system process) : 95 (QS system process) Pulse: 94 (QS system process) LaborFlag: OB Triage (QS system process) Datetime: 03/21/2016 10:23 NBP Sys/Johanna/Mean (mmHg): 127 (QS system process) : 61 (QS system process) : 88 (QS system process) Pulse: 91 (QS system process) Respirations: 16 (Irasema Tariq RN) LaborFlag: OB Triage (QS system process) Datetime: 03/21/2016 10:18 Pain Scale: 0 (Irasema Tariq RN) Pain Presence: None/Denies (Irasema Tariq RN) Pain Type: N/A (Irasema Tariq RN) Pain Goal: 2 (Irasema Tariq RN) I/O Interventions: Paulson Cath Inserted (Irasema Tariq RN) LaborFlag: OB Triage (QS system process) Datetime: 03/21/2016 10:15 Monitor Mode: External; Palpation (Irasema Tariq RN) Frequency (min): 2-3 (Irasema Tariq RN) Quality: Moderate (Irasema Tariq RN) Duration (sec): 60-80 (Irasema Tariq RN) Resting Tone (Palpate): Relaxed (Irasema Tariq RN) Monitor Mode: External US (Irasema Tariq RN) FHR Baseline Rate : 130 (Irasema Tariq RN) Variability: Moderate 6-25 bpm (Irasema Tariq RN) Accelerations: 10X10 (Irasema Tariq RN) Decelerations: Early (Irasema Tariq RN) Datetime: 03/21/2016 10:12 NBP Sys/Johanna/Mean (mmHg): 115 (QS system process) : 65 (QS system process) : 83 (QS system process) Pulse: 107 (QS system process) Respirations: 18 (Irasema Tariq RN) LaborFlag: OB Triage (QS system process) Datetime: 03/21/2016 10:11 Dilatation (cm): 8.0 (Irasema Tariq RN) Effacement (%): 90 (Irasema Tariq RN) Station: 1 (Irasema Tariq RN) Exam by: Helena Tariq RNC (Irasema Tariq RN) Vaginal Bleeding: None (Irasema Tariq RN) Cervix, Consistency: Soft (Irasema Tariq RN) Cervix, Position: Anterior (Irasema Tariq RN) Datetime: 03/21/2016 10:09 NBP Sys/Johanna/Mean (mmHg): 129 (QS system process) : 68 (QS system process) : 86 (QS system process) Pulse: 90 (QS system process) Respirations: 18 (Irasema Tariq, RN) LaborFlag: OB Triage (QS system process) Datetime: 03/21/2016 10:08 NBP Sys/Johanna/Mean (mmHg): 118 (QS system process) : 59 (QS system process) : 84 (QS system process) Pulse: 92 (QS system process) LaborFlag: OB Triage (QS system process) Datetime: 03/21/2016 10:07 NBP Sys/Johanna/Mean (mmHg): 152 (QS system process) : 58 (QS system process) : 83 (QS system process) Pulse: 96 (QS system process) Respirations: 16 (Irasema Tariq RN) LaborFlag: OB Triage (QS system process) Datetime: 03/21/2016 10:04 NBP Sys/Johanna/Mean (mmHg): 116 (QS system process) : 62 (QS system process) : 82 (QS system process) Pulse: 86 (QS system process) Respirations: 18 (Irasema Tariq RN) LaborFlag: OB Triage (QS system process) Datetime: 03/21/2016 10:03 NBP Sys/Johanna/Mean (mmHg): 115 (QS system process) : 57 (QS system process) : 81 (QS system process) Pulse: 94 (QS system process) Respirations: 18 (Irasema Tariq RN) LaborFlag: OB Triage (QS system process) Datetime: 03/21/2016 10:02 NBP Sys/Johanna/Mean (mmHg): 118 (QS system process) : 60 (QS system process) : 82 (QS system process) Pulse: 90 (QS system process) Respirations: 20 (Irasema Tariq RN) Patient Position/Activity: Left Tilt; Supine (Irasema Tariq RN) LaborFlag: OB Triage (QS system process) Datetime: 03/21/2016 10:00 Monitor Mode: External; Palpation (Irasema Tariq RN) Frequency (min): 2-3 (Irasema Tariq RN) Quality: Moderate to Strong (Irasema Tariq RN) Duration (sec): 50-80 (Irasema Tariq RN) Resting Tone (Palpate): Relaxed (Irasema Tariq RN) Monitor Mode: External US (Irasema Tariq RN) FHR Baseline Rate : 135 (Irasema Tariq RN) Variability: Moderate 6-25 bpm (Irasema Tariq RN) Accelerations: 15X15 (Irasema Tariq RN) Decelerations: None (Irasema Marciano, RN) Datetime: 03/21/2016 09:59 NBP Sys/Johanna/Mean (mmHg): 122 (QS system process) : 71 (QS system process) : 92 (QS system process) Pulse: 89 (QS system process) LaborFlag: OB Triage (QS system process) Datetime: 03/21/2016 09:58 NBP Sys/Johanna/Mean (mmHg): 131 (QS system process) : 74 (QS system process) : 95 (QS system process) Pulse: 96 (QS system process) Respirations: 20 (Irasema Tariq RN) Epidural Procedure: Cath Placed; Test Dose (Irasema Tariq RN) LaborFlag: OB Triage (QS system process) Datetime: 03/21/2016 09:57 Epidural Procedure: Loading Dose (Irasema Tariq, JUVENCIO) Datetime: 03/21/2016 09:50 Procedure Type: Epidural (Irasema Tariq RN) Procedure Verify: Correct Patient Identity; Correct Side and Site are Marked; Accurate Procedure Consent Form; Agreement on Procedure to be Done; Correct Patient Position; Relevant Images and Results are Properly Labeled and Displayed; Addressed Need to Administer Antibiotics or Fluids for Irrigation; Safety Precautions Based on Patient History or Medication Use (Irasema Tariq RN) Anesthesia Plans: Epidural (Irasema Tariq RN) Epidural Positioning: Sitting (Irasema Tariq RN) Anesthesia Comments: Dr Kaur at bedside (Irasema Tariq RN) Datetime: 03/21/2016 09:45 IV/Blood Work: New IV Bag Hung; IV Bag Number @ 2 (Irasema Tariq RN) Datetime: 03/21/2016 09:39 Anesthesia Plans: Epidural (Irasema Tariq RN) Epidural Positioning: Sitting (Irasema Tariq RN) Datetime: 03/21/2016 09:30 Monitor Mode: External; Palpation (Irasema Tariq RN) Frequency (min): 2-3 (Irasema Tariq RN) Quality: Moderate to Strong (Irasema Tariq RN) Duration (sec): 60-80 (Irasema Tariq RN) Resting Tone (Palpate): Relaxed (Irasema Tariq RN) Monitor Mode: External US (Irasema Tariq RN) FHR Baseline Rate : 140 (Irasema Tariq RN) Variability: Moderate 6-25 bpm (Irasema Tariq RN) Accelerations: 15X15 (Irasema Tariq RN) Decelerations: None (Irasema Tariq RN) Procedure Type: Epidural (Irasema Tariq RN) Procedure Verify: Correct Patient Identity; Correct Side and Site are Marked; Accurate Procedure Consent Form; Agreement on Procedure to be Done; Relevant Images and Results are Properly Labeled and Displayed; Addressed Need to Administer Antibiotics or Fluids for Irrigation; Safety Precautions Based on Patient History or Medication Use (Irasema Tariq RN) Anesthesia Plans: Epidural (Irasema Tariq RN) Epidural Positioning: Sitting (Irasema Tariq RN) Anesthesia Comments: Dr Kaur notified of epidural request (Irasema Tariq RN) Datetime: 03/21/2016 09:28 NBP Sys/Johanna/Mean (mmHg): 131 (QS system process) : 70 (QS system process) : 92 (QS system process) Pulse: 109 (QS system process) Respirations: 18 (Irasema Tariq RN) LaborFlag: OB Triage (QS system process) Datetime: 03/21/2016 09:02 Frequency (min): 3-5 (Irasema Tariq RN) Pain Scale: 5 (Irasema Tariq RN) Pain Presence: Intermittent (Irasema Tariq RN) Pain Type: Contraction (Irasema Tariq RN) Pain Location: Abdomen (Irasema Tariq RN) Pain Goal: 2 (Irasema Tariq RN) Pain Relief Measures: Comfort Measures (Irasema Tariq RN) Pain Coping: Breathing Through Contractions; Requesting Pain Medication or Epidural (Irasema Tariq RN) Membrane Status: Ruptured (Irasema Tariq RN) Membranes Ruptured Date/Time: 03/21/2016 07:30 (Irasema Tariq RN) Membranes Rupture Method: Spontaneous (Irasema Tariq RN) Amniotic Fluid Color: Clear (Irasema Tariq RN) Amniotic Fluid Amount: Moderate (Irasema Tariq RN) Amniotic Fluid Odor: Normal (Irasema Tariq RN) Vaginal Bleeding: None (Irasema Tariq RN) Dilatation (cm): 5 or greater cms (Irasema Tariq RN) Effacement: >80_ effaced (Irasema Tariq RN) Station: plus 1 to 2 (Irasema Tariq RN) Consistency: Soft (Irasema Tariq RN) Position: Anterior (Irasema Tariq RN) Total Kelly's Score: 13 (QS system process) : 9-14 = Usually no failure for induction (QS system process) Level of Consciousness: Fully Conscious (Irasema Tariq RN) DTR's/Clonus: DTRs 1+; No Clonus (Irasema Tariq RN) Headache: Denies (Irasema Tariq RN) Breath Sounds, Left: Clear and Equal (Irasema Tariq RN) Breath Sounds, Right: Clear and Equal (Irasema Tariq RN) Nausea/Vomiting: Denies (Irasema Tariq RN) RUQ Epigastric Pain: Denies (Irasema Tariq RN) Instructional Method: Verbal; Patient Instructed; Family/Support Person Instructed; Verbalized Understanding (Irasema Tariq RN) Plan of Care: Plan of Care Discussed; Vaginal Delivery; Labor (Irasema Tariq RN) Unit Routine: [place] to Room; Call Guerra; Bed; Visiting Policy; Waiting Areas; Security; Phone/Cell Phone Use; Photography; Unit Personnel; Consents Signed; Handwashing; Monitoring; IV Pumps; Safety/Fall Risk Prevention; Bathroom Privileges; Medications (Irasema Tariq RN) Labor/Induction: Labor Stages; Antibiotic Use (Irasema Tariq RN) Pain Management: Epidural; Pain Scale/Goals; Comfort Measures (Irasema Tariq RN) Medications: Antibiotics (Irasema Tariq RN) LaborFlag: OB Triage (QS system process) Datetime: 03/21/2016 09:00 Monitor Mode: External; Palpation (Irasema Tariq, RN) Frequency (min): 2-3 (Irasema Tariq, RN) Quality: Moderate to Strong (Irasema Marciano, RN) Duration (sec): 60-80 (Irasema Marciano, RN) Resting Tone (Palpate): Relaxed (Irasemaalisson Tariq, RN) Monitor Mode: External US (Irasema Tariq, RN) FHR Baseline Rate : 135 (Irasema Marciano, RN) Variability: Moderate 6-25 bpm (Irasema Marciano, RN) Accelerations: 15X15 (Irasema Marciano, RN) Decelerations: None (Irasema Marciano, RN) Datetime: 03/21/2016 08:57 Antibiotics: Penicillin IV (Units) @ 5million units (Irasema Tariq RN) Procedure Type: Epidural (Irasema Tariq RN) Procedure Verify: Correct Patient Identity; Correct Side and Site are Marked; Accurate Procedure Consent Form; Agreement on Procedure to be Done; Relevant Images and Results are Properly Labeled and Displayed; Addressed Need to Administer Antibiotics or Fluids for Irrigation; Safety Precautions Based on Patient History or Medication Use (Irasema Tariq RN) Anesthesia Plans: Epidural (Irasema Tariq RN) Datetime: 03/21/2016 08:54 IV/Blood Work: IV Started; IV Bolus Started; IV Bag Number @ 1 (Irasema Tariq RN) Datetime: 03/21/2016 08:53 NBP Sys/Johanna/Mean (mmHg): 119 (QS system process) : 76 (QS system process) : 91 (QS system process) Pulse: 88 (QS system process) Respirations: 18 (Irasema Tariq RN) Temperature (F): 98.2 (Irasema Tariq RN) Temperature (C): 36.8 (QS system process) Temperature Route: Oral (Irasema Tariq RN) LaborFlag: OB Triage (QS system process) Datetime: 03/21/2016 08:41 Dilatation (cm): 7.0 (Irasema Tariq RN) Effacement (%): 90 (Irasema Tariq RN) Station: 1 (Irasema Tariq RN) Exam by: Helena Tariq RNC (Irasema Tariq, RN) Vaginal Bleeding: None (Irasema Tariq RN) Cervix, Consistency: Soft (Irasema Tariq RN) Cervix, Position: Anterior (Irasema Tariq RN)
--- NOTE | 2016-03-21 19:26 | Delivery Summary ---
Del Sum A-C Datetime Report Generated by CPN: 03/21/2016 19:25 ADMISSION DATA Chief Complaint: Uterine Contractions Indication for Induction: Not Applicable Admission Impression: , Intrauterine ; Active Labor; Intact Membranes Admit Provider Comments: PCN for status DELIVERY PERSONNEL Delivery Doctor:: Alvino Varner, DO Labor and Delivery Nurse:: Irasema Tariq RN Nursery Nurse:: Neelima Harp RN Student Observers:: Myra Burrell [facility] Folder Machine Adjuster/FUR FEEDER: Henry Emiliano, TANK CAR REPAIRER MATERNAL INFORMATION Delivery Anesthesia: Epidural Medications After Delivery: Pitocin Bolus-Please Comment Meds After Delivery Comment: Pitocin 20 units in 1000mL NSS Estimated Blood Loss (ml): 200 Maternal Complications: None Provider Comments: of viable female in AC position Placenta delievered spontaneous and intact with 3v cord Fundus firm LABOR SUMMARY EDC: 04/15/2016 00:00 No. Babies in Womb: 1 Attempted: No Labor Anesthesia: Epidural LABOR INFORMATION Reason for Induction: Not Applicable Onset of Labor: 03/21/2016 04:00 Complete Dilatation: 03/21/2016 11:55 Oxytocin: N/A Group B Beta Strep: Unknown Antibiotics # of Doses: 1 Antibiotics Time of Last Dose: 857 Name of Antibiotic Given: PCN Steroids Given: None Reason Steroids Not Administered: Not Applicable MEMBRANES Membranes Rupture Method: Spontaneous Rupture of Membranes: 03/21/2016 07:30 Length of Rupture (hr): 4.72 Amniotic Fluid Color: Clear Amniotic Fluid Amount: Moderate Amniotic Fluid Odor: Normal STAGES OF LABOR Stage 1 hr: 7 Stage 1 min: 55 Stage 2 hr: 0 Stage 2 min: 18 Stage 3 hr: 0 Stage 3 min: 2 Total Time in Labor hr: 8 Total Time in Labor min: 15 VAGINAL DELIVERY Episiotomy: None Laceration Type: None Laceration Repair: Not Applicable Sponge Count Correct: Yes Sharps Count Correct: Yes CSECTION DELIVERY Primary Indication: N/A Secondary Indication: N/A CSection Urgency: N/A CSection Incidence: N/A Labor: N/A Elective: N/A CSection Incision: N/A BABY A INFORMATION Delivery Date/Time: 03/21/2016 12:13 Method of Delivery: Vaginal Born in Route : No : N/A Forceps: N/A Vacuum Extraction: N/A Shoulder Dystocia : No PRESENTATION/POSITION BABY A Presentation: Cephalic Cephalic Presentation: Vertex Vertex Position: Left Occipital Anterior Breech Presentation: N/A PLACENTA INFORMATION BABY A Placenta Delivery Time : 03/21/2016 12:15 Placenta Method of Delivery: Spontaneous Placenta Status: Delivered SCORES BABY A Heart Rate 1 min: >100 bpm Resp Effort 1 min: Good Cry Reflex Irritability 1 min: Cough or Sneeze or Pulls Away Muscle Tone 1 min: Active Motion Color 1 min: Body [place], Extremities Blue Resuscitation Effort 1 min: Tactile Stimulation SCORE 1 MIN: 9 Heart Rate 5 min: >100 bpm Resp Effort 5 min: Good Cry Reflex Irritability 5 min: Cough or Sneeze or Pulls Away Muscle Tone 5 min: Active Motion Color 5 min: Body [place], Extremities Blue Resuscitation Effort 5 min: Tactile Stimulation SCORE 5 MIN: 9 INFANT INFORMATION BABY A Gestational Age at Delivery: 36.3 Gestational Status: Late - 34- 36.6 Weeks Infant Outcome : Liveborn Infant Condition : Stable Sex: Female IDENTIFICATION BABY A Infant Verification Date/Time: 03/21/2016 12:34 ID Band Number: [id number] Mother's Name Verified: Yes Infant RN Verifying : A. Marciano RN Additional Verifying Personnel: MarcyCarly Harp RN WEIGHT/LENGTH BABY A Birthweight (gm): 2600 Infant Weight (lb): 5 Infant Weight (oz): 12 Infant Length (in): 18.25 Infant Length (cm): 46.36 CORD INFORMATION BABY A No. Cord Vessels: 3 Nuchal Cord : N/A Cord Blood Taken: Yes-For Storage (Mom's Blood type +) Suction: Mouth ASSESSMENT BABY A Complications: None Physical Findings at Delivery: Within Normal Limits; Molding of the Head Respirations: Appears Normal Skin to Skin: Yes Autobody Technician/ALS Called : No Infant Care By: Belkis Harp RN Transferred To: Remains with Mother BABY B INFORMATION : N/A SIGNATURES Signature: with User ID: [email or web address]
--- NOTE | 2016-03-22 06:01 | L&D General Admission ---
General Admit Datetime Report Generated by CPN: 03/22/2016 06:00 INFORMATION Patient Age: 20 (02/14/2016 19:05:QS system process) EDC: 04/15/2016 00:00 (02/14/2016 19:33:Marley Heredia RN) : 2 (02/14/2016 19:33:Tamar Zheng RN) Para: 1 (03/21/2016 06:19:Elma Loaiza RN) Term: 1 (02/14/2016 19:33:Irasema Tariq RN) : 0 (02/14/2016 19:33:Irasema Tariq RN) Spontaneous Abortions: 0 (02/14/2016 19:33:Irasema Tariq RN) Induced Abortions: 0 (02/14/2016 19:33:Irasema Tariq RN) Livin (02/14/2016 19:33:Irasema Tariq RN) Cesareans: 0 (02/14/2016 19:33:Irasema Tariq RN) VBACs: 0 (02/14/2016 19:33:Irasema Tariq RN) Ectopic: 0 (02/14/2016 19:33:Irasema Tariq RN) Multiple Births: 0 (02/14/2016 19:33:Irasema Tariq RN) Baby, Number in Womb: 1 (03/21/2016 06:19:Elma Loaiza RN) CARE Primary Diesel Locomotive Crane Operator: Other-Annotate (02/14/2016 19:33:Tamar Zheng RN) Diesel Locomotive Crane Operator Other: [place] (02/14/2016 19:33:Tamar Zheng RN) Month of 1st Visit: 12/2015 (02/14/2016 19:33:Irasema Tariq RN) Adequate Care: No (02/14/2016 19:33:Irasema Tariq RN) Prepregnancy Weight (lb): 112 (02/14/2016 19:33:Irasema Tariq RN) Prepregnancy Weight (kg): 50.9 (02/14/2016 19:33:QS system process) Height (in): 65 (02/14/2016 19:19:QS system process) ALLERGIES Medication Allergy: No (02/14/2016 19:33:Tamar Zheng RN) Medication Allergies: No Known Allergies (03/21/2016) (03/21/2016 08:19:QS system process) Latex Allergy: No Latex Allergies (02/14/2016 19:33:Tamar Zheng RN) Food Allergies: NA (02/14/2016 19:33:Tamar Zheng RN) Environmental Allergies: NA (02/14/2016 19:33:Crystal Marce RN) COMMUNICATION Primary Language: Honduran (02/14/2016 19:33:Tamar Zheng RN) Medical Tx Preferred Language: Honduran (02/14/2016 19:33:Tamar Zheng RN) Communication Barrier(s): None (02/14/2016 19:33:Tamar Zheng RN) DEMOGRAPHICS Address: [address] [place] [id number] (02/14/2016 19:05:QS system process) Zipcode: [address] (02/14/2016 19:05:QS system process) Home (03/21/2016 08:19:QS system process) SSN: [id number] (02/14/2016 19:05:QS system process) Next of Kin Name: DARIUS ARMSTRONG (03/21/2016 08:19:QS system process) Next of Kin (03/21/2016 08:19:QS system process) Next of Kin Relationship: [place] (03/21/2016 08:19:QS system process) Date of : 1995 (02/14/2016 19:05:QS system process) Marital Status: Single (02/14/2016 19:05:QS system process) Sex: Female (02/14/2016 19:05:QS system process) Race: (02/14/2016 19:05:QS system process) Ethnicity: Non- or (02/14/2016 19:05:QS system process) Druze: None (02/14/2016 19:05:QS system process) DRUG AND ALCOHOL USE Alcohol: No (02/14/2016 19:33:Tamar Zheng RN) Cigarettes: Former Smoker. [id number] (02/14/2016 19:33:Tmaar Zheng RN) Marijuana: No (02/14/2016 19:33:Tamar Zheng RN) Cocaine: No (02/14/2016 19:33:Tamar Zheng RN) Other Illicit Drugs: No (02/14/2016 19:33:Tamar Zheng RN) VACCINE HISTORY Influenza Vaccine: Yes (02/14/2016 19:33:Tamar Zheng RN) Pneumococcal Vaccine: Uncertain (02/14/2016 19:33:Tamar Zheng RN) Tetanus Vaccine: Uncertain (02/14/2016 19:33:Tamar Zheng RN) Tdap Vaccine: Uncertain (02/14/2016 19:33:Tamar Zheng RN) Hepatitis B Vaccine: Uncertain (02/14/2016 19:33:Tamar Zheng RN) Beauty Culturist Apprentice: [facility] (02/14/2016 19:33:Irasema Tariq RN) Feeding Preference: Formula (02/14/2016 19:33:Irasema Tariq RN) Benefit of Breast Feed Discussed: Yes (02/14/2016 19:33:Tamar Zheng RN) Circumcision: N/A (02/14/2016 19:33:Tamar Zheng RN) Classes Attended: No (02/14/2016 19:33:Tamar Zheng RN) Tubal Ligation: No (02/14/2016 19:33:Tamar Zheng RN) Tubal Authorization Signed: N/A (02/14/2016 19:33:Tamar Zheng RN) Consent: N/A (02/14/2016 19:33:Tamar Zheng RN) Consent Signed: N/A (02/14/2016 19:33:Tamar Zheng RN) Pain Management Plans: Epidural (02/14/2016 19:33:Tamar Zheng RN) Plans for Labor and Delivery: None (02/14/2016 19:33:Tamar Zheng RN) Support Person: Pepper Armstrong (02/14/2016 19:33:Irasema Tariq, RN) Support Person Relationship: Mother (02/14/2016 19:33:Tamar Zheng RN) Cultural/Spritual Practice: No (02/14/2016 19:33:Tamar Zheng RN) Spir/Cult Dietary Needs: No (02/14/2016 19:33:Tamar Zheng RN) LIVING SITUATION/DISCHARGE PLAN Living Arrangements: House (02/14/2016 19:33:Tamar Zheng RN) Adequate Access to:: Heat; Refrigeration; Plumbing/Running water; Phone; Transportation (02/14/2016 19:33:Tamar Zheng RN) WIC Program: Yes (02/14/2016 19:33:Tamar Zheng RN) Discharge Padded Products Inspector Trimmer Person: Pepper Armstrong (02/14/2016 19:33:Irasema Tariq, RN) Person to Help after Discharge: Pepper Armstrong (02/14/2016 19:33:Irasema Marciano, RN) Currently Using Commun Resources: Yes (02/14/2016 19:33:Tamar Zheng RN) Outside Agency/Firefighter Marine: No (02/14/2016 19:33:Irasema Tariq RN) Car Seat for Discharge: Yes (02/14/2016 19:33:Irasema Tariq RN) Adoption Requested: No (02/14/2016 19:33:Irasema Tariq RN) Pt Contact w/infant Post : N/A (02/14/2016 19:33:Irasema Tariq RN) LABS Blood Type: B Positive (02/14/2016 19:33:Vikki Sabillon RN) Antibody Screen: Negative (02/14/2016 19:33:Vikki Sabillon RN) Hemoglobin: 9.4 L (03/21/2016 09:11:QS system process) Hematocrit: 29.9 L (03/21/2016 09:11:QS system process) MCV: 77 L (03/21/2016 09:11:QS system process) Group Beta Strep: Unknown (02/14/2016 19:33:Irasema Tariq RN) OB/PREVIOUS HISTORY Previous Procedures: Ultrasound (02/14/2016 19:33:Tamar Zheng RN) Current Procedures: Ultrasound (02/14/2016 19:33:Tamar Zheng RN) History of Previous : No (02/14/2016 19:33:Tamar Zheng RN) History of Gestational Diabetes: No (02/14/2016 19:33:Tamar Zheng RN) History of PIH: No (02/14/2016 19:33:Tamar Zheng RN) History of Incompetent Cervix: No (02/14/2016 19:33:Tamar Zheng RN) History of Placenta Previa/Abrup: No (02/14/2016 19:33:Tamar Zheng RN) History of Macrosomia: No (02/14/2016 19:33:Tamar Zheng RN) History of IUGR: No (02/14/2016 19:33:Tamar Zheng RN) History of Hemorrhage: No (02/14/2016 19:33:Tamar Zheng RN) History of Loss/Stillborn: No (02/14/2016 19:33:Tamar Zheng RN) History of : No (02/14/2016 19:33:Tamar Zheng RN) History of D (Rh) Sensitization: No (02/14/2016 19:33:Tamar Zheng RN) History Recurrent Loss/Stillborn: No (02/14/2016 19:33:Tamar Zheng RN) History Depression/PP Depression: No (02/14/2016 19:33:Tamar Zheng RN) History of Uterine Anomaly/SOLOMON: No (02/14/2016 19:33:Tamar Zheng RN) History of Infertility: No (02/14/2016 19:33:Tamar Zheng RN) History of ART Treatment: No (02/14/2016 19:33:Tamar Zheng RN) History of SOLOMON: No (02/14/2016 19:33:Tamar Zheng RN) Comments Obstetrical History: G1 - 01/2015 - at 41wks, 6lbs 8oz G2 - current - late entry to care, anemia (02/14/2016 19:33:Irasema Tariq RN) MEDICAL HISTORY Med Hx Diabetes: No (02/14/2016 19:33:Tamar Zheng RN) Med Hx Hypertension: No (02/14/2016 19:33:Tamar Zheng RN) Med Hx Heart Disease: No (02/14/2016 19:33:Tamar Zheng RN) Med Hx Autoimmune Disorder: No (02/14/2016 19:33:Tamar Zheng RN) Med Hx Kidney Disease/UTI: No (02/14/2016 19:33:Tamar Zheng RN) Med Hx Neurologic/Epilepsy: No (02/14/2016 19:33:Tamar Zheng RN) Med Hx Psychiatric Disorders: No (02/14/2016 19:33:Tamar Zheng RN) Med Hx Hepatitis/Liver Disease: No (02/14/2016 19:33:Tamar Zheng RN) Med Hx Varicosities/Phlebitis: No (02/14/2016 19:33:Tamar Zheng RN) Med Hx Thyroid Dysfunction: No (02/14/2016 19:33:Tamar Zheng RN) Med Hx Trauma/Violence: No (02/14/2016 19:33:Tamar Zheng RN) Med Hx Blood Transfusion: No (02/14/2016 19:33:Tamar Zheng RN) Med Hx Pulmonary (Asthma,TB): No (02/14/2016 19:33:Tamar Zheng RN) Med Hx Breast: No (02/14/2016 19:33:Tamar Zheng RN) Med Hx STUDENT TEACHING COORDINATOR Surgery: No (02/14/2016 19:33:Tamar Zheng RN) Med Hx Hospitalization/Surgery: No (02/14/2016 19:33:Tamar Zheng RN) Med Hx Anesthetic Complications: No (02/14/2016 19:33:Tamar Zheng RN) Med Hx Abnormal Pap Smear: No (02/14/2016 19:33:Tamar Zheng RN) Other Medical Diseases: No (02/14/2016 19:33:Tamar Zheng RN) Med Hx Significant Family Hx: No (02/14/2016 19:33:Tamar Zheng RN) INFECTIOUS HISTORY Inf Hx Gonorrhea: No (02/14/2016 19:33:Tamar Zheng RN) Inf Hx Chlamydia: Yes (02/14/2016 19:33:Tamar Zheng RN) Inf Hx Syphilis: No (02/14/2016 19:33:Tamar Zheng RN) Inf Hx HIV/AIDS: No (02/14/2016 19:33:Tamar Zheng RN) Inf Hx Human Papilloma Virus: No (02/14/2016 19:33:Tamar Zheng RN) Inf Hx Pt/Partner Genital Herpes: No (02/14/2016 19:33:Tamar Zheng RN) Inf Hx Tuberculosis/Exposure: No (02/14/2016 19:33:Tamar Zheng RN) Inf Hx Hepatitis B,C: No (02/14/2016 19:33:Tamar Zheng RN) Inf Hx Rash or Viral Illness: No (02/14/2016 19:33:Tamar Zheng RN) Details of Infectious Hx: 2015 (02/14/2016 19:33:Tamar Zheng RN) GENETIC HISTORY Gen Hx Age >=35 at ARA: No (02/14/2016 19:33:Tamar Zheng RN) Gen Hx Thalassemia: No (02/14/2016 19:33:Tamar Zheng RN) Gen Hx Congenital Heart Defect: No (02/14/2016 19:33:Tamar Zheng RN) Gen Hx Neural Tube Defect: No (02/14/2016 19:33:Tamar Zheng RN) Gen Hx Down's Syndrome: No (02/14/2016 19:33:Tamar Zheng RN) Gen Hx Koeb-Sachs: No (02/14/2016 19:33:Tamar Zheng RN) Gen Hx Moo: No (02/14/2016 19:33:Tamar Zheng RN) Gen Hx Familial Dysautonomia: No (02/14/2016 19:33:Tamar Zheng RN) Gen Hx Sickle Cell Disease/Trait: No (02/14/2016 19:33:Tamar Zheng RN) Gen Hx Hemophilia/Blood Disorder: No (02/14/2016 19:33:Tamar Zheng RN) Gen Hx Muscular Dystrophy: No (02/14/2016 19:33:Tamar Zheng RN) Gen Hx Cystic Fibrosis: No (02/14/2016 19:33:Tamar Zheng RN) Gen Hx Huntingtons Chorea: No (02/14/2016 19:33:Tamar Zehng RN) Gen Hx Mental Retardation/Autism: No (02/14/2016 19:33:Tamar Zheng RN) Gen Hx Tested for Fragile X: No (02/14/2016 19:33:Tamar Zheng RN) Gen Hx Other Inher/Chromosomal: No (02/14/2016 19:33:Tamar Zheng RN) Gen Hx Maternal Metabolic DO: No (02/14/2016 19:33:Tamar Zheng RN) Gen Hx Pt Father or FOB Defect: No (02/14/2016 19:33:Tamar Zheng RN) Gen Hx Other Genetic History: No (02/14/2016 19:33:Tamar Zheng RN) Gen Hx Drugs/Meds since LMP: Yes (02/14/2016 19:33:Irasema Tariq RN) Gen Hx Medications: PNV (02/14/2016 19:33:Irasema Tariq RN)
--- NOTE | 2016-03-22 06:01 | L&D Current Admission ---
Current Admit Datetime Report Generated by CPN: 03/22/2016 06:00 ADMISSION INFORMATION Current Admit Date/Time: 03/21/2016 08:41 (03/21/2016 09:11:Irasema Tariq RN) Reason for Admission: Onset of Labor; Rupture of Membranes (03/21/2016 09:11:Irasema Tariq RN) Chief Complaint: Contractions; Suspected Rupture of Membranes (03/21/2016 09:02:Irasema Tariq RN) EGA per Dates: 36.3 (03/21/2016 09:11:QS system process) Method of Arrival: Wheelchair (03/21/2016 09:11:Irasema Tariq RN) Admitted From: Operating Room (03/21/2016 09:11:Irasema Tariq RN) Reason for Induction: Not Applicable (03/21/2016 09:11:Irasema Tariq RN) Records Available: Yes (03/21/2016 09:11:Irasema Tariq RN) General Admission Information: Reviewed; Updated; Confirmed (03/21/2016 09:11:Irasema Tariq RN) General Admission Reviewed By: Helena Tariq RN (03/21/2016 09:11:Irasema Tariq RN) BELONGINGS/ADVANCED DIRECTIVES Valuables/Personal Effects: None (03/21/2016 09:11:Irasema Tariq RN) Other Belongings: See belongings consent (03/21/2016 09:11:Irasema Tariq RN) Disposition of Belongings: Kept with Patient (03/21/2016 09:11:Irasema Tariq RN) Advance Direct for Healthcare: No, and Wants No Information (03/21/2016 09:11:Irasema Tariq RN) Durable Power of Marketing Clerk: No (03/21/2016 09:11:Irasema Tariq RN) Living Will: No (03/21/2016 09:11:Irasema Tariq RN) Organ Donor: No (03/21/2016 09:11:Irasema Tariq RN) Pt Rights Information Given: Yes (03/21/2016 09:11:Irasema aTriq RN) Pt Understands Pt Rights: Yes (03/21/2016 09:11:Irasema Tariq RN) LEARNING ASSESSMENT Knowledge Level: Understands L_D Process; Understands Care Activities; Understands Diagnosis (03/21/2016 09:11:Irasema Tariq RN) Barriers to Learning: Pain (03/21/2016 09:11:Irasema Tariq RN) Learning Readiness: Motivated (03/21/2016 09:11:Irasema Tariq RN) Learns Best By: 1 to 1 Instruction; Reading; Videos; Demonstration (03/21/2016 09:11:Irasema Tariq RN) Learning Needs: Labor and Delivery Process; Pain Management; Symptoms to Report; Treatment Plan; Medication; Diagnosis; Nutrition; Equipment; Infant Care; Community Resources (03/21/2016 09:11:Irasema Tariq RN) DOMESTIC VIOLANCE SCREENING Dom Viol Threatened/Hurt: No (03/21/2016 09:11:Irasema Tariq RN) Hx of Abuse/Neglect past 2yrs: No (03/21/2016 09:11:Irasema Tariq RN) Feel Unsafe Going Home: No (03/21/2016 09:11:Irasema Tariq RN) Addt'l Observ Indicating Abuse: No (03/21/2016 09:11:Irasema Tariq RN) Reason Unable to Complete Screen: N/A, Screen Completed (03/21/2016 09:11:Irasema Tariq RN) Considered Personal Harm/Suicide: No (03/21/2016 09:11:Irasema Tariq RN) NUTRITIONAL/FUNCTIONAL SCREENING Problem with Appetite >5 Days: No (03/21/2016 09:11:Irasema Tariq RN) Chew/Swallow Difficulties: No (03/21/2016 09:11:Irasema Tariq RN) Inappropriate Wt Gain/Loss: No (03/21/2016 09:11:Irasema Tariq RN) Presence Skin Breakdown/Ulcer: No (03/21/2016 09:11:Irasema Tariq RN) Special Diet: No (03/21/2016 09:11:Irasema Tariq RN) Pt Requests It Help Desk Technician Visit: No (03/21/2016 09:11:Irasema Tariq RN) Hx of Any of the Following?: N/A (03/21/2016 09:11:Irasema Tariq RN) New Diagnosis of: N/A (03/21/2016 09:11:Irasema Tariq RN) Requires Assist w/Ambulation: No (03/21/2016 09:11:Irasema Tariq RN) Uses Assist Device to Ambulate: No (03/21/2016 09:11:Irasema Tariq RN) Pt Requires Help w/ADL's: No (03/21/2016 09:11:Irasema Tariq RN)
--- NOTE | 2016-03-22 06:16 | L&D Care Plan ---
LD CARE PLANS Datetime Report Generated by CPN: 03/22/2016 06:15 Datetime: 03/21/2016 08:44 Pain State: Risk For (Neelima Harp RN) Related To: Labor and Delivery Process; Treatment and Procedures (Neelima Harp RN) Goal(s): Patients Pain will be Assessed and Managed; Patient will Verbalize Adequate Relief of Pain or the Ability to [place] with Current Pain (Neelima Harp RN) Interventions: Assess Pain Severity on Scale of 0 (None) to 5 (Severe); Assess Type, Location and Intensity of Pain Each Time Client Reports Discomfort and Notify Provider if Unusal Pain Develops; Encourage Proper Breathing and Relaxation Techniques; Offer Alternatives Such as Repositioning, Calm Environment, Massages, Diversional Activities, Ice Pack, Splinting, and Ambulation; Administer Analgesics as Ordered; Assist with Epidural Placement as Appropriate; Evaluate Therapeutic Effectiveness of Medication and Treatments (Neelima Harp RN) Outcome: Patient will Report Absence or Relief of Pain Consistent with Established Pain Goal (Neelima Harp RN) Status: Ongoing (Neelima Harp RN) Outcome: Patient will have a Decrease in Signs and Symptoms of Discomfort (Neelima Harp RN) Status: Ongoing (Neelima Harp RN) Outcome: Pain will be Controlled During Procedures (Neelima Harp RN) Status: Ongoing (Neelima Harp RN) Anxiety State: Risk For (Neelima Harp RN) Related To: Labor and Delivery Process; Medical Interventions (Neelima Harp RN) Goal(s): Patient will have Decreased Anxiety and be able to Function at Acceptable Levels (Neelima Harp RN) Interventions: Assess Verbal and Nonverbal Behavioral Indicators of Anxiety; Assist Patient to Identify and Verbalize Symptoms of Anxiety; Identify and Demonstrate Techniques to Control Anxiety; Assist Patient with Coping Mechanisms to Manage Anxiety; Provide Theraputic Touch for the Patient; Explain to Patient, Using a Calm Reassuring Approach and Nonmedical Terms, All Activities, Procedures, and Concerns; Instruct Patient and Family about Post Discharge Care, Limitations, Symptoms to Report and Resources Available (Neelima Harp RN) Outcome: Patient will Identify, Verbalize and Demonstrate Techniques to Control Anxiety (Neelima Harp RN) Status: Ongoing (Neelima Harp RN) Outcome: Patient's Posture, Facial Expressions, Gestures and Activity Level will Reflect Decreased Anxiety (Neelima Harp RN) Status: Ongoing (Neelima Harp RN) Outcome: Patient will Verbalize a Sense of Control and/or Acceptance of the Situation (Neelima Harp RN) Status: Ongoing (Neelima Harp RN) Outcome: Patient will Identify and Utilize Support Person (Neelima Harp RN) Status: Ongoing (Neelima Harp RN) Knowledge Deficit State: Risk For (Neelima Harp RN) Related To: Labor and Delivery Process (Neelima Harp RN) Goal(s): Patient will Accurately Verbalize Understanding of Plan of Care and Treatment; Patient and Family will Accurately Verbalize Understanding of the Disease Process (Neelima Harp RN) Interventions: Assess Motivation and Willingness of Patient/Family to Learn; Assess Preferred Learning Mode: One to One Instruction, Reading, Videos, Group Discussion or Demonstration; Assess Barriers to Learning: Pain, Emotional State, Language Barrier, Cognitive Impairment, Visual or Hearing Deficits; Assess Patient and Family Knowledge of Disease Process, Medications and Treatment; Discuss Therapy and/or Treatment Options, Describe Rationale Behind Management, Therapy and Treatment Recommendations; Instruct Patient and Family on Signs and Symptoms to Report; Instruct Patient and Family on Medication Effects and Side Effects; Provide Appropriate and Timely Education Using Multiple Techniques; Provide Patient and Family with Support Group Information and Resources; Give Clear and Thorough Explanations and Demonstrations (Neelima Harp RN) Outcome: Patient and Family will Verbalize Understanding of Condition, Treatment and Signs and Symptoms to Report (Neelima Harp RN) Status: Ongoing (Neelima Harp RN) Outcome: Patient will Identify Perceived Learning Needs and Express Motivation to Learn (Neelima Harp RN) Status: Ongoing (Neelima Harp RN) Outcome: Patient will Verbalize Understanding of Desired Content, and/or Performs Desired Skill Prior to Discharge (Neelima Harp RN) Status: Ongoing (Neelima Harp RN) Infection State: Risk For (Neelima Harp RN) Related To: Invasive Procedures (Neelima Harp RN) Goal(s): The Patient will be Free of Infection, Vital Signs Stable and Lab Work within Normal Parameters (Neelima Harp RN) Interventions: Instruct and Reinforce Proper Handwashing, Hygiene, and Care Techniques to Patient and Family; Monitor Vital Signs; Monitor Patient for the Following Signs of Infection: Fever, Abdominal Tenderness, Unusual Discharge; Monitor Aminiotic Fluid, Urine and Lochia for Color and Odor; Observe Wounds, Incisions and Invasive Line Sites for Redness, Drainage and Edema; Assess IV Sites per Hospital Policy; Monitor Lab and Test Results and Notify Provider of Abnormal Findings; Assess Nutritional Status and Promote Good Nutrition (Neelima Harp RN) Outcome: Patient will Remain Free of Infection (Neelima Harp RN) Status: Ongoing (Neelima Harp RN) Outcome: Infection will be Recognized Early to Allow for Prompt Treatment (Neelima Harp RN) Status: Ongoing (Neelima Harp RN) Outcome: Patient will have Vital Signs Within Expected Range (Neelima Harp RN) Status: Ongoing (Neelima Harp RN) Injury State: Risk For (Neelima Harp RN) Related To: Labor and Delivery Process (Neelima Harp RN) Goal(s): Patient will Remain Free from Injury (Neelima Harp RN) Interventions: Monitoring as per Hospital Protocol; Assess Neurological Status; Perform Risk Assessment of Patients with Induction and ; Perform Fall Risk Assessment and Prevention per Hospital Protocol; Perform DVT Risk Assessment and Prophylaxis per Hospital Protocol; Ensure that Oxygen, Suction, and Resuscitation Medications and Equipment are Readily Available; Confirm Patient ID Prior to Procedure(s) and Medication Administration per Hospital Policy (Neelima Harp RN) Outcome: Successful Fall Risk Prevention (Neelima Harp RN) Status: Ongoing (Neelima Harp RN) Outcome: Patient will Deliver Infant without Adverse [place] (Neelima Harp RN) Status: Ongoing (Neelima Harp RN) Outcome: Patient's Neurological Status will Remain Stable (Neelima Harp RN) Status: Ongoing (Neelima Harp RN) Datetime: 03/21/2016 08:43 Pain State: Risk For (Neelima Harp RN) Related To: Labor and Delivery Process; Treatment and Procedures (Neelima Harp RN) Goal(s): Patients Pain will be Assessed and Managed; Patient will Verbalize Adequate Relief of Pain or the Ability to [place] with Current Pain (Neelima Harp RN) Interventions: Assess Pain Severity on Scale of 0 (None) to 5 (Severe); Assess Type, Location and Intensity of Pain Each Time Client Reports Discomfort and Notify Provider if Unusal Pain Develops; Encourage Proper Breathing and Relaxation Techniques; Offer Alternatives Such as Repositioning, Calm Environment, Massages, Diversional Activities, Ice Pack, Splinting, and Ambulation; Administer Analgesics as Ordered; Assist with Epidural Placement as Appropriate; Evaluate Therapeutic Effectiveness of Medication and Treatments (Neelima Harp RN) Outcome: Patient will Report Absence or Relief of Pain Consistent with Established Pain Goal (Neelima Harp RN) Status: Ongoing (Neelima Harp RN) Outcome: Patient will have a Decrease in Signs and Symptoms of Discomfort (Neelima Harp RN) Status: Ongoing (Neelima Harp RN) Outcome: Pain will be Controlled During Procedures (Neelima Harp RN) Status: Ongoing (Neelima Harp RN) Anxiety State: Risk For (Neelima Harp RN) Related To: Labor and Delivery Process; Medical Interventions (Neelima Harp RN) Goal(s): Patient will have Decreased Anxiety and be able to Function at Acceptable Levels (Neelima Harp RN) Interventions: Assess Verbal and Nonverbal Behavioral Indicators of Anxiety; Assist Patient to Identify and Verbalize Symptoms of Anxiety; Identify and Demonstrate Techniques to Control Anxiety; Assist Patient with Coping Mechanisms to Manage Anxiety; Provide Theraputic Touch for the Patient; Explain to Patient, Using a Calm Reassuring Approach and Nonmedical Terms, All Activities, Procedures, and Concerns; Instruct Patient and Family about Post Discharge Care, Limitations, Symptoms to Report and Resources Available (Neelima Harp RN) Outcome: Patient will Identify, Verbalize and Demonstrate Techniques to Control Anxiety (Neelima Harp RN) Status: Ongoing (Neelima Harp RN) Outcome: Patient's Posture, Facial Expressions, Gestures and Activity Level will Reflect Decreased Anxiety (Neelima Harp RN) Status: Ongoing (Neelima Harp RN) Outcome: Patient will Verbalize a Sense of Control and/or Acceptance of the Situation (Neelima Harp RN) Status: Ongoing (Neelima Harp RN) Outcome: Patient will Identify and Utilize Support Person (Neelima Harp RN) Status: Ongoing (Neelima Harp RN) Knowledge Deficit State: Risk For (Neelima Harp RN) Related To: Labor and Delivery Process (Neelima Harp RN) Goal(s): Patient will Accurately Verbalize Understanding of Plan of Care and Treatment; Patient and Family will Accurately Verbalize Understanding of the Disease Process (Neelima Harp RN) Interventions: Assess Motivation and Willingness of Patient/Family to Learn; Assess Preferred Learning Mode: One to One Instruction, Reading, Videos, Group Discussion or Demonstration; Assess Barriers to Learning: Pain, Emotional State, Language Barrier, Cognitive Impairment, Visual or Hearing Deficits; Assess Patient and Family Knowledge of Disease Process, Medications and Treatment; Discuss Therapy and/or Treatment Options, Describe Rationale Behind Management, Therapy and Treatment Recommendations; Instruct Patient and Family on Signs and Symptoms to Report; Instruct Patient and Family on Medication Effects and Side Effects; Provide Appropriate and Timely Education Using Multiple Techniques; Provide Patient and Family with Support Group Information and Resources; Give Clear and Thorough Explanations and Demonstrations (Neelima Harp RN) Outcome: Patient and Family will Verbalize Understanding of Condition, Treatment and Signs and Symptoms to Report (Neelima Harp RN) Status: Ongoing (Neelima Harp RN) Outcome: Patient will Identify Perceived Learning Needs and Express Motivation to Learn (Neelima Harp RN) Status: Ongoing (Neelima Harp RN) Outcome: Patient will Verbalize Understanding of Desired Content, and/or Performs Desired Skill Prior to Discharge (Neelima Harp RN) Status: Ongoing (Neelima Harp RN) Infection State: Risk For (Neelima Harp RN) Related To: Invasive Procedures (Neelima Harp RN) Goal(s): The Patient will be Free of Infection, Vital Signs Stable and Lab Work within Normal Parameters (Neelima Hapr RN) Interventions: Instruct and Reinforce Proper Handwashing, Hygiene, and Care Techniques to Patient and Family; Monitor Vital Signs; Monitor Patient for the Following Signs of Infection: Fever, Abdominal Tenderness, Unusual Discharge; Monitor Aminiotic Fluid, Urine and Lochia for Color and Odor; Observe Wounds, Incisions and Invasive Line Sites for Redness, Drainage and Edema; Assess IV Sites per Hospital Policy; Monitor Lab and Test Results and Notify Provider of Abnormal Findings; Assess Nutritional Status and Promote Good Nutrition (Neelima Harp RN) Outcome: Patient will Remain Free of Infection (Neelima Harp RN) Status: Ongoing (Neelima Harp RN) Outcome: Infection will be Recognized Early to Allow for Prompt Treatment (Neelima Harp RN) Status: Ongoing (Neelima Harp RN) Outcome: Patient will have Vital Signs Within Expected Range (Neelima Harp RN) Status: Ongoing (Neelima Harp RN) Injury State: Risk For (Neelima Harp RN) Related To: Labor and Delivery Process (Neelima Harp RN) Goal(s): Patient will Remain Free from Injury (Neelima Harp RN) Interventions: Monitoring as per Hospital Protocol; Assess Neurological Status; Perform Risk Assessment of Patients with Induction and ; Perform Fall Risk Assessment and Prevention per Hospital Protocol; Perform DVT Risk Assessment and Prophylaxis per Hospital Protocol; Ensure that Oxygen, Suction, and Resuscitation Medications and Equipment are Readily Available; Confirm Patient ID Prior to Procedure(s) and Medication Administration per Hospital Policy (Neelima Harp RN) Outcome: Successful Fall Risk Prevention (Neelima Harp RN) Status: Ongoing (Neelima Harp RN) Outcome: Patient will Deliver without Adverse [place] (Neelima Harp RN) Status: Ongoing (Neelima Harp RN) Outcome: Patient's Neurological Status will Remain Stable (Neelima Harp RN) Status: Ongoing (Neelima Harp RN)
[2016-03-22] MEDS: IBUPROFEN 800 MG TABLET PO SCH ×3 (06:19→21:46)
[2016-03-22 08:18] LABS: HEMATOCRIT 29.4 % (36.0-47.0); HEMOGLOBIN 9.4 g/dL (12.0-15.5); HGB HCT DIFFERENCE -1.2; MEAN CORPUSCULAR HEMOGLOBIN 24.5 pg (27.0-33.4); MEAN CORPUSCULAR HGB CONC 32.1 g/dL (32.0-36.0); MEAN CORPUSCULAR VOLUME 76 fl (80-97); RED BLOOD COUNT 3.85 10^6/uL (3.72-5.28); RED CELL DISTRIBUTION WIDTH 16.8 % (11.5-14.0); WHITE BLOOD COUNT 12.8 10^3/uL (4.0-10.5)
[2016-03-22] MEDS: DOCUSATE SODIUM 100 MG CAPSULE PO SCH ×2 (09:35→17:18)
[2016-03-22] MEDS: SENNOSIDES/DOCUSATE 8.6-50 MG 1 EACH TABLET PO SCH (09:35)
[2016-03-22] MEDS: PRENATAL VITAMIN W-O CA NO5/FE FUMARATE/FA CAPSULE PO SCH (09:35)
[2016-03-22] MEDS: FERROUS SULFATE 325 MG TABLET PO SCH ×2 (09:36→17:18)
--- NOTE | 2016-03-22 11:57 | PDOC PROGRESS REPORT ---
Subjective-OB Subjective: Post Delivery Day:1 20 year old . Voiding and ambulating without difficulty. Desires Depo for control on discharge. Denies any needs at this time Physical Exam (OB) Vital Signs: Temp Pulse Resp BP Pulse Ox 98.2 F 95 18 119/71 100 03/22/16 08:11 03/22/16 08:11 03/22/16 08:11 03/22/16 08:11 03/22/16 08:11 Intake & Output 03/21/16 03/22/16 03/23/16 06:59 06:59 06:59 Weight 58 kg - General General Appearance: Appears well In distress: None - Episiotomy/Laceration Site Condition: N/A - Lochia Lochia Amount: Scant < 10 ml Lochia Color: Rubra/Red - Abdomen Description: Soft Hernia Present: No Fundal Description: Firm, Midline Fundal Height: u/u - u/2 - Respiratory Respiratory Status: No respiratory distress - Extremities Upper extremity: Normal inspection Lower extremities: Normal inspection - Neurological Cognition: Normal Orientation: AAOx4 - Psychological Associated symptoms: Normal affect, Normal mood Objective-Diagnostic Laboratory: 03/22/16 07:19 03/21/16 03/22/16 09:11 07:19 WBC 12.8 H RBC 3.85 Hgb 9.4 L Hct 29.4 L MCV 76 L MCH 24.5 L MCHC 32.1 RDW 16.8 H Plt Count 311 Blood Type B POSITIVE Antibody Screen NEGATIVE Assessment and Plan(PN) - Assessment and Plan (1) Vaginal delivery Is this a current diagnosis for this admission?: YesPlan: continue stay (2) Term Is this a current diagnosis for this admission?: YesPlan: continue stay (3) Limited care Qualifiers: Trimester: unspecified trimester Qualified Code(s): O09.30 - Supervision of with insufficient care, unspecified trimester Is this a current diagnosis for this admission?: YesPlan: continue stay (4) Anemia Is this a current diagnosis for this admission?: YesPlan: iron supplementation - Time Spent with Patient Time with patient: 15-25 minutes Medications reviewed and adjusted accordingly: Yes - Disposition Anticipated Discharge: Home Within: within 24 hours
[2016-03-23] MEDS: IBUPROFEN 800 MG TABLET PO SCH ×2 (05:10→13:47)
[2016-03-23 08:46] VITALS: BP 115/71
[2016-03-23] MEDS: DOCUSATE SODIUM 100 MG CAPSULE PO SCH (10:17)
[2016-03-23] MEDS: FERROUS SULFATE 325 MG TABLET PO SCH (10:17)
[2016-03-23] MEDS: PRENATAL VITAMIN W-O CA NO5/FE FUMARATE/FA CAPSULE PO SCH (10:17)
[2016-03-23] MEDS: SENNOSIDES/DOCUSATE 8.6-50 MG 1 EACH TABLET PO SCH (10:17)
--- NOTE | 2016-03-23 11:59 | PDOC DISCHARGE SUMMARY ---
Final Diagnosis Discharge Date: 03/23/16 - Final Diagnosis (1) Anemia Is this a current diagnosis for this admission?: Yes (2) Term Is this a current diagnosis for this admission?: Yes (3) Vaginal delivery Is this a current diagnosis for this admission?: Yes Discharge Data - Discharge Medication Home Medications: Ferrous Sulfate [Iron] 325 mg PO Q8 03/21/16 Vit/Iron Fumarate/FA [ Tablet] 1 tab PO DAILY 03/21/16 Ibuprofen [Motrin 800 mg Tablet] 800 mg PO Q8 #90 tablet 03/23/16 Reason(s) for Admission: Onset of Labor Procedures: None Intrapartum Procedure(s): Spontaneous Vaginal Delivery - Data Baby 1 Female at 1 minute: 9 at 5 minutes: 9 Weight: 2600 kg Home with Mother: Yes Complications: No - Diagnosis Test Laboratory: Temp Pulse Resp BP Pulse Ox 98.2 F 84 16 115/71 96 03/23/16 08:36 03/23/16 08:36 03/23/16 08:36 03/23/16 08:23 03/23/16 08:36 03/21/16 03/22/16 09:11 07:19 RBC 3.91 3.85 Hgb 9.4 L 9.4 L Hct 29.9 L 29.4 L - Discharge information/Instructions Discharge Activity: Activity As Tolerated, Pelvic Rest, No tub bath Discharge Diet: Regular Disposition: HOME, SELF-CARE Follow up with: [facility] carver prior to discharge follow up in 4 weeks precautions reviewed in: 4
== END 2016-03-23 16:13 | disposition home or self-care (01) | DRG 775 ==
LOC: LC 08:19 → LR 08:50 → 2S 15:00
PROVIDERS: ADMIT Obstetrics & Gynecology; ATTEND Obstetrics & Gynecology
PROC: 10E0XZZ Delivery of Products of Conception, External Approach (ICD-10-PCS; principal; 2016-03-21)
PROC: 4A1HXCZ Monitoring of Products of Conception, Cardiac Rate, External Approach (ICD-10-PCS; 2016-03-21)
DX: O60.14X0 Preterm labor third trimester with preterm delivery third trimester, not applicable or unspecified (principal); O99.02 Anemia complicating childbirth; D64.9 Anemia, unspecified; Z87.891 Personal history of nicotine dependence; Z3A.36 36 weeks gestation of pregnancy; Z37.0 Single live birth
CPT/HCPCS: 36415; 84112; 85025; 85027; 86592; 86850; 86900; 86901; 88307; J2540; J2590; J3490